=== PATIENT | male | born 1945 | race Caucasian/White ===

== ENCOUNTER 2018-01-30 12:02 | Inpatient (IN) | payer MEDICARE, MEDICAID ==
--- NOTE | 2018-01-30 13:08 | ED Physician Chart ---
ED Chief Complaint/HPI - Patient Information Date Seen:: 01/30/18 Time Seen:: 12:03 Chief Complaint:: GENERALIZED WEAKNESSAND PAIN IN THELEFT HIPAND PELVIC REGION. History of Present Illness:: THE 72-YEAR-OLD MALE HAS BEEN CHRONICALLY IT'LL OVER THE PAST 5 TO 6 YEARS AND HAS BEEN RESIDING IN A LONG-TERM FACILITY. HE WAS REFERRED TO THE EMERGENCY DEPARTMENT BY HIS PRIMARY CARE PHYSICIAN,DR. YUSUF FOR EVALUATION OF SEPSIS AND SEVERE PAIN PAIN IN THE LEFT LOWER EXTREMITY WHICH IS BOTH CHRONIC AND VERY SEVERE. THE PAIN IS MADE WORSE BY ANY MOVEMENT BUT ESPECIALLY WHEN HE IS ROLLED ROLL OVER IN BED BY NURSING PERSONNEL. HE DENIES ANY RECENT FEVER, CHILLS OR DIAPHORESIS.HE THINKS THE SOURCES OF HIS PAIN ARE THE PRESSER ULCERS LOCALIZED TO HIS LOW BACKAND THE RIGHT HEEL AREA. Allergies:: Allergies Allergy/AdvReac Type Severity Reaction Status Date / Time No Known Allergies Allergy Verified 01/30/18 12:21 Vitals:: Vital Signs - 8 hr 01/30/18 12:21 Temp 97.8 F HR 80 RR 18 BP 109/61 O2 Sat % 96 ED Review of Systems - Review of Systems General/Constitutional: No fever, No chills, Weakness, No diaphoresis, No loss of appetite Skin: Skin lesions, Rash Head: No light-headedness Eyes: No loss of vision, No pain, No diplopia ENT: No earache, Sore throat, No sore throat, No tinnitus Pulmonary: No sputum, No wheezing GI: No nausea, No vomiting, No diarrhea, No pain, Constipation, Hematemesis, No hematemesis G/U: No dysuria, No hematuria Hematopoietic: No lymphadenopathy Allergic/Immuno: No urticaria, No angioedema Neurological: No syncope, No focal symptoms, No weakness, No headache, No seizure (WHEN WOULD YOU LIKEFIVE SOUNDS GOOD TO ME), No dizziness, No confusion , No vertigo ED Past Medical History - Past Medical History Past Medical History: HTN, DM, PUD/GERD, Thyroid disorder, Other (OBESITY, MULTIPLECUBITAL OF ULCERSINVOLVING THE BACKAND UNDER THE HEELS,GOUT, ARTHRITIS ( MOST LIKELYTHE SOURCE OF HIS LOWER EXTREMITY PAIN.)) Social History: Smoker (NON-AMBUL), Alcohol, Illicit Drug Use, Single, Care Facility ([facility] DISORDER,) Psychiatricy History: Bipolar (Occational ETOH) Family Medical History - Family Member Mother History Unknown: Yes ED Physical Exam - Physical Examination General/Constitutional: Awake, Alert Other Gen/Cons comments:: Laboratory Tests 01/30/18 01/30/18 01/30/18 13:20 13:50 13:50 Sodium 134 L Potassium 3.5 Chloride 100 Carbon Dioxide 26.3 Anion Gap 11.2 BUN 11 Creatinine 0.5 L Est GFR ( Amer) TNP Est GFR (Non-Af Amer) TNP BUN/Creatinine Ratio 22.0 Glucose 180 H Hemoglobin A1c % 9.2 H Calcium 9.3 Total Bilirubin 0.5 AST 16 ALT 20 Alkaline Phosphatase 107 H Ammonia 29 Total Protein 7.1 Albumin 4.0 L Globulin 3.1 Albumin/Globulin Ratio 1.3 ATRIAL FIBRILLATION Clinical Indications for Admission to Inpatient Care (Ruby/check the applicable condition/criteria) Admission is indicated for 1 or more of the following(1)(2)(3)(4)(5)(6)(7)(8): [ ] I. Hemodynamic instability indicated by 1 or more of the following(1)(2)(3)( 4)(5)(6)(7): [ ] a. Vital sign abnormality not readily corrected by appropriate treatment within 12 to 24 hours indicated by 1 or more of the following: [ ] i. Tachycardia as indicated by 1 or more of the following(1)(2): [ ] 1. Heart rate greater than 100 beats per minute in adult or child age 6 years or older [ ] 2. Heart rate greater than 115 beats per minute in child 3 to 5 years of age [ ] 3. Heart rate greater than 125 beats per minute in child 1 or 2 years of age [ ] 4. Heart rate greater than 130 beats per minute in 6 to 11 months of age [ ] 5. Heart rate greater than 150 beats per minute in infant 3 to 5 months of age [ ] 6. Heart rate greater than 160 beats per minute in infant 1 or 2 months of age [ ] ii. Hypotension as indicated by ALL of the following (1)(2)(3)(4): [ ] A. Not patient baseline (eg, healthy adult with low SBP) or intentional therapeutic goal (eg, low SBP as treatment goal in heart failure) [ ] B. Low blood pressure as indicated by 1 or more of the following: [ ] 1. New onset of SBP less than 90 mm Hg in adult or child 10 years or older [ ] 2. New decrease in SBP greater than 40 mm Hg in adult or child 10 years or older [ ] 3. Mean arterial pressure[A] less than 70 mm Hg in adult or child 10 years or older [ ] 4. New onset of SBP less than sum of 70 mm Hg plus twice patient's age in years in child 1 to 9 years of age [ ] 5. New onset of SBP less than 70 mm Hg in 1 to 11 months of age [ ] iii. Orthostatic vital sign changes as indicated by 1 or more of the following (1): [ ] A. Fall in SBP of 20 mm Hg or more 1 to 3 minutes after patient sits or stands from recumbent position [ ] B. Fall in DBP of 10 mm Hg or more 1 to 3 minutes after patient sits or stands from recumbent position [ ] b. Vital sign abnormality that is severe indicated by 1 or more of the following: [ ] i. Inadequate perfusion as indicated by 1 or more of the following: [ ] A. Lactic acidosis, with lactic acid greater than 18 mg/dL (2 mmol/L) or base excess < -5mEq/L [ ] B. New abnormal capillary refill (longer than 3 seconds) [ ] C .Other metabolic acidosis (arterial pH < 7.35)not otherwise explanied [ ] D. Myocardial ischemia [ ] E. Altered mental status indicated by 1 or more of the following (1)(2)(3)(4): [ ] 1. Confusional state (eg,disorientation, difficultyfollowing commands,deficit in attention) [ ] 2. Lethargy (awake or arousable,but with drowsiness; reduced awareness of self and environment) [ ] 3. Obtundation(ie,arousable with strong stimuli, lessened interestin environment, slowed responses to stimulation) [ ] 4. Stupor (may be arousable but patient does not return to normal baseline level of awareness) [ ] 5. Coma (not arousable) [ ] F. Reduced urine output as indicated by 1 or more of the following(1)(2): [ ] 1. Urine output less than 0.5 mL/kg/hour for 6 hours in adult [ ] 2. Anuria (urine output less than 0.1 mL/kg/hour) for 4 hours in any age group [ ] 3. Reduced output in child as indicated by 1 or more of the following (3): [ ] i. Urine output less than 2 mL/kg/hour for 6 hours in younger than 2 years [ ] ii. Urine output less than 1 mL/kg/hour for 6 hours in child younger than 12 years [ ] iii. Urine output less than 0.75 mL/kg/hour for 6 hours in adolescent younger than 18 years [ ] ii. Mean arterial pressure[A] less than 60 mm Hg [ ] iii. Mean arterial pressure[A] less than 70 mm Hg after 30 minutes of appropriate treatment (eg, fluid resuscitation) [ ] iv. IV inotropic or vasopressor medication required to maintain adequate blood pressure or perfusion [ ] v. Sustained heart rate greater than 120 beats per minute in adult or child 6 years or older[B] [ ] II. Myocardial infarction. [ ] III. Myocardial ischemia that persists despite outpatient and [facility] care treatment [ ] IV. Altered mental status indicated by 1 or more of the following(1)(2)(3)(4 ): [ ] a. Confusional state (eg,disorientation,difficultyfollowing commands, deficit in attention) [ ] b. Lethargy (awake or arousable,but with drowsiness;reduced awareness of self and environment) [ ] c. Obtundation(ie,arousable with strong stimuli,lessened interestin environment, slowed responses to stimulation) [ ] d. Stupor (may be arousable but patient does not return to normal baseline level of awareness) [ ] e. Coma (not arousable) [ ] V. Syncope [ ] . Heart failure (eg, pulmonary edema with dyspnea, Tachypnea, or Hypoxemia )(10) [ ] a. Tachypnea as indicated by respiratory rate of 1 or more of the following(1)(2): [ ] i. Greater than 18 breaths per minute in adult or child age 12 years or older [ ] ii. Greater than 22 breaths per minute in child 6 to 11 years of age [ ] iii. Greater than 25 breaths per minute in child 3 to 5 years of age [ ] iv. Greater than 30 breaths per minute in child 1 or 2 years of age [ ] v. Greater than 40 breaths per minute in infant 6 to 11 months of age [ ] vi. Greater than 45 breaths per minute in 3 to 5 months of age [ ] vii. Greater than 60 breaths per minute in infant 1 or 2 months of age [ ] b. Hypoxemia as indicated by 1 or more of the following (1): [ ] i. Previously normal respiratory status with 1 or more of the following [ ] A. Arterial oxygen saturation (SaO2) less than 90% o arterial partial pressure of oxygen (PO2) less than 60 mm Hg (8.0 kPa) on room air[A] [ ] B. Oxygen required to keep SaO2 greater than 90% or PO2 greater than 60 mm Hg(8.0kPa) [ ] ii. Chronic lung disease with 1 or more of the following (2): [ ] A. New requirement for supplemental oxygen to keep SaO2 at baseline or acceptable level [ ] B. Required supplemental oxygen performable only in acute inpatient setting [ ] VII. Patient has implantable cardioverter-defibrillator that has fired more than once within past 24 hours or needs immediate adjustment of settings that cannot be done other than in inpatient setting. [ ] VIII. Suspected accessory pathway (eg, Qyxrp-Uwolksfwl-Thcqq syndrome) on ECG [ ] IX. Medication toxicity (eg, digitalis) causing arrhythmia (12) [ ] X. Underlying medical condition that necessitates inpatient care (eg, thyrotoxicosis, pneumonia) (13) [ ] XI. Continuous ECG monitoring is required for condition causing arrhythmia ( eg, severe hyperkalemia, hypokalemia, acid-base disturbance).(14)(15)(16) [ ] XII. Initiation of antiarrhythmic drug therapy for patient at high risk of adverse effects as indicated by 1 or more of the following: [ ] a. Significant structural heart disease [ ] b. Underlyingsinus node or atrioventricular conduction disturbances [ ] c. Prolonged QT interval [ ] d. Need for treatment with antiarrhythmic drugs that have significant proarrhythmic potential (eg, dofetilide, sotalol, procainamide) [ ] e. Patient whose sinus rhythm has never been observed on ECG [ ] XIII. Persistent symptomatic Tachycardia (eg, chest pain, evidence of myocardial ischemia) despite outpatient and observation level of care (eg, rate cannot be sufficiently controlled) [ ] a. Tachycardia as indicated by 1 or more of the following(1)(2): [ ] i. Heart rate greater than 100 beats per minute in adult or child age 6 years or older [ ] ii. Heart rate greater than 115 beats per minute in child 3 to 5 years of age [ ] iii. Heart rate greater than 125 beats per minute in child 1 or 2 years of age [ ] iv. Heart rate greater than 130 beats per minute in infant 6 to 11 months of age [ ] v. Heart rate greater than 150 beats per minute in infant 3 to 5 months of age [ ] vi. Heart rate greater than 160 beats per minute in 1 or 2 months of age [ ] XIV. Elective or urgent electrical cardioversion that cannot be performed on outpatient basis or during observation care Extended stay beyond goal length of stay may be needed for (1)(43)(44): [ ] I. Unstable comorbidities (eg, heart failure, COPD, renal insufficiency ) [ ] a. Unstable comorbidities may be exacerbated by atrial fibrillation with rapid ventricular response. [ ] b. Anticipate treatment of specific comorbidity. [ ] II. Persistently uncontrolled atrial fibrillation (eg, continued rapid ventricular response) (45) [ ] a. Anticipate appropriate medication changes, possible catheter ablation , or possible need for continued monitoring. [E] [ ] III. Acute thromboembolic event (eg, stroke, limb or intestinal ischemia) [ ] a. Thromboembolism may occur during episodes of atrial fibrillation or soon after conversion to sinus rhythm. Anticipate diagnostic imaging studies and anticoagulation. [ ] b. Anticipate possible surgery or vascular procedure in cases of critical limb ischemia. [ ] IV. Need for inpatient attainment of full anticoagulation(28)(46)(47) [ ] a. Most patients can be started on anticoagulation in hospital and achieve full anticoagulation as outpatient over ensuing few days, or are treated with oral anticoagulants with rapid onset of action (hours) (eg, dabigatran, rivaroxaban). [ ] b. In unusual circumstances (eg, mechanical prosthetic heart valve), patients with atrial fibrillation require full anticoagulation with warfarin before discharge The original [employer] content created by [employer] has been revised. The portions of the content which have been revised are identified through the use of italic text, and [email or web address] has neither reviewed nor approved the modified material. All other unmodified content is copyright [employer]. Please see references footnoted in the original [employer] edition 2017 Laboratory Results WBC 8.0 Th/cmm (4.8-10.8) 01/31/18 05:00 RBC 4.79 Mil/cmm (3.80-5.80) 01/31/18 05:00 Hgb 12.5 gm/dL (12-16) 01/31/18 05:00 Hct 37.6 % (41.0-60) L 01/31/18 05:00 MCV 78.5 fl (80-99) L 01/31/18 05:00 MCH 26.0 pg (27.0-31.0) L 01/31/18 05:00 MCHC Differential 33.2 pg (28.0-36.0) 01/31/18 05:00 RDW 15.2 % (11.5-20.0) 01/31/18 05:00 Plt Count 294 Th/cmm (150-400) 01/31/18 05:00 MPV 6.4 fl 01/31/18 05:00 Neutrophils % 66.6 % (40.0-80.0) 01/31/18 05:00 Lymphocytes % 22.4 % (20.0-50.0) 01/31/18 05:00 Monocytes % 9.4 % (2.0-10.0) 01/31/18 05:00 Eosinophils % 0.9 % (0.0-5.0) 01/31/18 05:00 Basophils % 0.7 % (0.0-2.0) 01/31/18 05:00 Sodium 137 mEq/L (136-145) 01/31/18 05:00 Potassium 3.6 mEq/L (3.5-5.1) 01/31/18 05:00 Chloride 102 mEq/L (98-107) 01/31/18 05:00 Carbon Dioxide 25.7 mEq/L (21.0-31.0) 01/31/18 05:00 Anion Gap 12.9 (7.0-16.0) 01/31/18 05:00 BUN 12 mg/dL (7-25) 01/31/18 05:00 Creatinine 0.5 mg/dL (0.7-1.3) L 01/31/18 05:00 Est GFR ( Amer) TNP 01/31/18 05:00 Est GFR (Non-Af Amer) TNP 01/31/18 05:00 BUN/Creatinine Ratio 24.0 01/31/18 05:00 Glucose 187 mg/dL (70-105) H 01/31/18 05:00 POC Glucose 145 MG/DL (70 - 105) H 01/31/18 17:03 Hemoglobin A1c % 9.2 % (4.0-6.0) H 01/30/18 13:50 Calcium 9.6 mg/dL (8.6-10.3) 01/31/18 05:00 Total Bilirubin 0.5 mg/dL (0.3-1.0) 01/30/18 13:20 AST 16 U/L (13-39) 01/30/18 13:20 ALT 20 U/L (7-52) 01/30/18 13:20 Alkaline Phosphatase 107 U/L (34-104) H 01/30/18 13:20 Ammonia 29 umol/L (16-53) 01/30/18 13:50 Total Protein 7.1 gm/dL (6.0-8.3) 01/30/18 13:20 Albumin 4.0 gm/dL (4.2-5.5) L 01/30/18 13:20 Globulin 3.1 gm/dL 01/30/18 13:20 Albumin/Globulin Ratio 1.3 (1.0-1.8) 01/30/18 13:20 Urine Source CLEAN C 01/30/18 18:45 Urine Color YELLOW 01/30/18 18:45 Urine Clarity CLEAR (CLEAR) 01/30/18 18:45 Urine pH 5.5 (4.6 - 8.0) 01/30/18 18:45 Ur Specific [place] 1.025 (1.005-1.030) 01/30/18 18:45 Urine Protein NEGATIVE mg/dL (NEGATIVE) 01/30/18 18:45 Urine Glucose (UA) NEGATIVE mg/dL (NEGATIVE) 01/30/18 18:45 Urine Ketones NEGATIVE mg/dL (NEGATIVE) 01/30/18 18:45 Urine Blood NEGATIVE (NEGATIVE) 01/30/18 18:45 Urine Nitrate NEGATIVE (NEGATIVE) 01/30/18 18:45 Urine Bilirubin NEGATIVE (NEGATIVE) 01/30/18 18:45 Urine Urobilinogen 0.2 E.U./dL (0.2 - 1.0) 01/30/18 18:45 Ur Leukocyte Esterase NEGATIVE (NEGATIVE) 01/30/18 18:45 Urine RBC 0-2 /hpf (0-5) H 01/30/18 18:45 Urine WBC 0-2 /hpf (0-5) 01/30/18 18:45 Ur Epithelial Cells OCCASIONAL /lpf (FEW) 01/30/18 18:45 Urine Bacteria OCCASIONAL /hpf (NONE SEEN) 01/30/18 18:45 CBC:THE WHITE COUNT WAS 8000IN THE HEMOGLOBIN LEVEL12.5. ELECTROLYTES SHOWED A MILD HYPONATREMIAOF 137.THE OTHER ELECTROLYTES WERE WITHIN NORMAL PARAMETERS.ARIANE LIVER FUNCTION TESTS WERE NORMAL.SCRATCH THAT Eyes: PERRL, EOMI ED Labs/Radiology/EKG Results - Lab Results Results: Laboratory Tests 01/30/18 01/30/18 13:20 13:50 Sodium 134 L Potassium 3.5 Chloride 100 Carbon Dioxide 26.3 Anion Gap 11.2 BUN 11 Creatinine 0.5 L Est GFR ( Amer) TNP Est GFR (Non-Af Amer) TNP BUN/Creatinine Ratio 22.0 Glucose 180 H Calcium 9.3 Total Bilirubin 0.5 AST 16 ALT 20 Alkaline Phosphatase 107 H Ammonia 29 Total Protein 7.1 Albumin 4.0 L Globulin 3.1 Albumin/Globulin Ratio 1.3 Laboratory Results - last 24 hr 01/30/18 13:50 Hemoglobin A1c % 9.2 H CBC IS UN REMARKABLEWITH THE WHITE CANOPY THOUSANDIN A NORMAL HEMOGLOBIN.THERE IS MILD HYPONATREMIAWITH THE SODIUM OF 134.THE REST OF THE ELECTROLYTESARE WITHIN THE NORMAL RANGE. THE SERUM GLUCOSEIS CONSISTENTLY ELEVATED BUT UNDER 200. IS CONSISTENTLY ELEVATED IN THE 180 RANGE. LFTS WERE NORMAL EXCEPT FOR THE ALK-PTASESSSSSSSS 107WHICH IS PROBABLY NOT CLINICALLY SIGNIFICANT IN VIEW OF THE OTHER IT LIVER ENZYMESIN THE NORMAL RANGE.NO EVIDENCE FOR UTI. ED Assessment - Assessment General Assessment: CASE SUMMARY:THIS UNFORTUNATE 72-YEAR-OLD MALEHAS BEENWHEELCHAIR BOUNDFOR THE LAST SIX YEARS.HE WAS REFERRED TO THEHOSPITAL TODAYBY HIS PRIMARY CARE PHYSICIANFOR EVALUATIONOF GENERALIZED WEAKNESSAND POSSIBLE SEPSIS.THE PATIENT DENIED ANY FEVER, CHILLSOR SWEATS.LABORATORY STUDIESSHOWING NORMAL WHITE COUNT, RENAL FUNCTION STUDIES,NORMAL LIVER FUNCTION STUDIES.HE WAS SETTING IT95% ON ROOM HIS HEART RATE WAS AT THE UPPER LIMIT OF NORMAL.PATIENTHAD NO EVIDENCE OF SEPTIC SHOCKTHIS IS WHAT PRESSUREWAS IN THE NORMAL RANGE.ON PHYSICAL EXAMINATION THE PATIENT HAD MULTIPLEULCERATIVE LESIONSOVER THE LOBACKAN ENTITYCOCCYX REGION.MOST OF THESE WERE STILLCOVERED BY A EPIDERMIS..THE SKIN IN THE LOWER EXTREMITIESBELOW THE KNEESWAS HYPERPIGMENTED AND APPEARED TO BE THIN.THIS IS CONSISTENT WITH STASIS DERMATITIS.THE CASE WAS DISCUSSED WITH DR. BAE THE PATIENT WILL BE ADMITTEDFOR FURTHER ATTENTION TO THE MULTIPLE PRESSURE CONSIDERATIONSAND PAIN IN THE LOWER EXTREMITIES. ED Septic Shock - . Is Septic Shock (SBP<90, OR Lactate>4 mmol\L) present?: No - <6hrs of presentation: Vital Signs: Vital Signs - 8 hr 01/30/18 12:21 Temp 97.8 F HR 80 RR 18 BP 109/61 O2 Sat % 96 ED Reassessment (Disposition) - Reassessment Reassessment Condition:: Unchanged - Diagnosis Diagnosis:: OBESITY, SLEEP APNEA,HYPERTENSION,MULTIPLE DECUBITUS ULCERS POSSIBLE SEPSIS ED Discharge Plan - Patient Disposition Admit/Discharge/Transfer: Acute Care w/in this hosp Condition at Disposition: Stable
[2018-01-30 14:16] LABS: ALB/GLOB RATIO 1.3 (1.0-1.8); ALKALINE PHOSPHATASE 107 U/L (34-104); ANION GAP 11.2 (7.0-16.0); BILIRUBIN,TOTAL 0.5 mg/dL (0.3-1.0); BUN - UREA NITROGEN 11 mg/dL (7-25); CALCIUM SERUM 9.3 mg/dL (8.6-10.3); CARBON DIOXIDE 26.3 mEq/L (21.0-31.0); CHLORIDE 100 mEq/L (98-107); CREATININE - SERUM 0.5 mg/dL (0.7-1.3); GLUCOSE 180 mg/dL (70-105); POTASSIUM SERUM 3.5 mEq/L (3.5-5.1); SGOT 16 U/L (13-39); SGPT/ALT 20 U/L (7-52); SODIUM SERUM 134 mEq/L (136-145); TOTAL PROTEIN,SERUM 7.1 gm/dL (6.0-8.3)
[2018-01-30 17:52] LABS: A1C % 9.2 % (4.0-6.0)
[2018-01-30] MEDS ORDERED: Morphine Sulfate 4 mg/mL 1mL Syr IVP PRN ×2 (20:02→20:03)
[2018-01-30] MEDS ORDERED: INSULIN REGULAR HUMAN 1 UNIT SQ SCH (20:30)
[2018-01-30] MEDS: INSULIN ASPART SLIDING SCALE 100 UNITS/ML UNIT SUBQ SCH (20:36)
[2018-01-30] MEDS: Atorvastatin Calcium 10 MG TAB PO SCH (21:02)
--- NOTE | 2018-01-30 21:18 | History & Physical ---
ADMIT DATE: 01/30/2018 The patient is very well known to me. The patient is from the [place]. This patient is very, very obese, history of hypertension, history of diabetes, history of severe obesity, history of hyperlipidemia, history of gout, history of bedbound status, patient was transferred to [facility] from where he was admitted for multiple decubiti and infection and sepsis and history of obstructive sleep apnea. The patient again as noted earlier, history of hypertension, diabetes, gout, hyperlipidemia and the patient is hardly able to move, complains of multiple decubiti. LABORATORY DATA: White count was elevated and his sodium was low at 134 and glucose is high and his hemoglobin A1c 9.2, alkaline phosphatase was slightly elevated. Albumin was low and the patient was admitted for the decubiti and wound care. The patient's all history obtained through the old chart as well as talking to the ER doctor. PHYSICAL EXAMINATION: GENERAL: The patient is very obese, noncompliant with medications. HEAD: Normal. ENT: Normal. LUNGS: Bilateral decreased. CARDIOVASCULAR SYSTEM: S1, S2 heard. ABDOMEN: Soft. Bowel sounds are heard. CENTRAL NERVOUS SYSTEM: Normal. The patient has shortness of breath and also multiple decubiti and as noted, sodium is 134 and his BUN and creatinine was low, hemoglobin was 9.2. DIAGNOSES: 1. Multiple decubiti infection. 2. Bedbound status. 3. Severe obesity, obstructive lung disease, history of hyperlipidemia, history of prostate enlargement, history of GERD, history of bipolar disorder and history of peripheral vascular disease and history of insulin-dependent resistant diabetes, history of hypertension and bedbound status. PLAN: The patient is being admitted. We will give him IV antibiotics and wound care and I will call Dr. Bret Carrington to see the patient as well as Dr. Cunningham and I will follow the patient. JOB# [id number]
[2018-01-30 22:24] LABS: URINE MICROSCOPIC INDICATED? YES; URINE SOURCE CLEAN C
[2018-01-30 22:26] LABS: URINE BILIRUBIN NEGATIVE (NEGATIVE); URINE BLOOD NEGATIVE (NEGATIVE); URINE GLUCOSE (UA) NEGATIVE (NEGATIVE); URINE KETONE NEGATIVE (NEGATIVE); URINE LEUKOCYTE ESTERASE NEGATIVE (NEGATIVE); URINE NITRATE NEGATIVE (NEGATIVE); URINE PH 5.5 (4.6 - 8.0); URINE PROTEIN NEGATIVE (NEGATIVE); URINE UROBILINOGEN 0.2 E.U./dL (0.2 - 1.0)
[2018-01-30 22:43] LABS: URINE CLARITY CLEAR (CLEAR); URINE COLOR YELLOW
[2018-01-30 22:45] LABS: URINE BACTERIA OCCASIONAL /hpf (NONE SEEN); URINE EPITHELIAL CELLS OCCASIONAL /lpf (FEW); URINE RBC 0-2 /hpf (0-5); URINE WBC 0-2 /hpf (0-5)
[2018-01-31 05:32] LABS: % BASOPHILS 0.7 % (0.0-2.0); % EOSINOPHILS 0.9 % (0.0-5.0); % LYMPHOCYTES 22.4 % (20.0-50.0); % MONOCYTES 9.4 % (2.0-10.0); % NEUTROPHILS 66.6 % (40.0-80.0); BASOPHILE ABSOLUTE 0.1 Th/cumm (0-0.2); EOSINOPHILE ABSOLUTE 0.1 Th/cmm (0.1-0.4); HEMATOCRIT 37.6 % (41.0-60); HEMOGLOBIN 12.5 gm/dL (12-16); LYMPHOCYTE ABSOLUTE 1.8 Th/cmm (1.5-3.0); MEAN CELL VOLUME 78.5 fl (80-99); MEAN CORPUSCULAR HGB CONC 33.2 pg (28.0-36.0); MEAN PLATELET VOLUME 6.4 fl; MONOCYTE ABSOLUTE 0.8 Th/cmm (0.3-1.0); NEUTROPHILE ABSOLUTE 5.2 Th/cmm (1.8-8.0); PLATELET COUNT 294 Th/cmm (150-400); RED BLOOD COUNT 4.79 Mil/cmm (3.80-5.80); RED CELL DISTRIBUTION WIDTH 15.2 % (11.5-20.0)
[2018-01-31 05:53] LABS: ANION GAP 12.9 (7.0-16.0); BUN - UREA NITROGEN 12 mg/dL (7-25); CALCIUM SERUM 9.6 mg/dL (8.6-10.3); CARBON DIOXIDE 25.7 mEq/L (21.0-31.0); CHLORIDE 102 mEq/L (98-107); CREATININE - SERUM 0.5 mg/dL (0.7-1.3); GLUCOSE 187 mg/dL (70-105); POTASSIUM SERUM 3.6 mEq/L (3.5-5.1); SODIUM SERUM 137 mEq/L (136-145)
[2018-01-31] MEDS: INSULIN ASPART SLIDING SCALE 100 UNITS/ML UNIT SUBQ SCH ×4 (06:40→20:41)
[2018-01-31] MEDS: Fenofibrate, Micronized 134 mg Cap PO SCH (10:08)
[2018-01-31] MEDS: Hydrocodone/APAP 5mg/325mg Tab PO SCH ×2 (10:09→16:52)
[2018-01-31] MEDS: Multivitamin w/ Minerals Tab PO SCH (10:11)
--- NOTE | 2018-01-31 13:42 | General Progress Note ---
Subjective - Review of Systems Service Date: 01/31/18 Events since last encounter: consult dictated doppler arterial and venous studies ordered local wound care Objective - Results Result Diagrams: 01/31/18 05:00 01/31/18 05:00 Recent Labs: Laboratory Last Values WBC 8.0 Th/cmm (4.8-10.8) 01/31/18 05:00 RBC 4.79 Mil/cmm (3.80-5.80) 01/31/18 05:00 Hgb 12.5 gm/dL (12-16) 01/31/18 05:00 Hct 37.6 % (41.0-60) L 01/31/18 05:00 MCV 78.5 fl (80-99) L 01/31/18 05:00 MCH 26.0 pg (27.0-31.0) L 01/31/18 05:00 MCHC Differential 33.2 pg (28.0-36.0) 01/31/18 05:00 RDW 15.2 % (11.5-20.0) 01/31/18 05:00 Plt Count 294 Th/cmm (150-400) 01/31/18 05:00 MPV 6.4 fl 01/31/18 05:00 Neutrophils % 66.6 % (40.0-80.0) 01/31/18 05:00 Lymphocytes % 22.4 % (20.0-50.0) 01/31/18 05:00 Monocytes % 9.4 % (2.0-10.0) 01/31/18 05:00 Eosinophils % 0.9 % (0.0-5.0) 01/31/18 05:00 Basophils % 0.7 % (0.0-2.0) 01/31/18 05:00 Sodium 137 mEq/L (136-145) 01/31/18 05:00 Potassium 3.6 mEq/L (3.5-5.1) 01/31/18 05:00 Chloride 102 mEq/L (98-107) 01/31/18 05:00 Carbon Dioxide 25.7 mEq/L (21.0-31.0) 01/31/18 05:00 Anion Gap 12.9 (7.0-16.0) 01/31/18 05:00 BUN 12 mg/dL (7-25) 01/31/18 05:00 Creatinine 0.5 mg/dL (0.7-1.3) L 01/31/18 05:00 Est GFR ( Amer) TNP 01/31/18 05:00 Est GFR (Non-Af Amer) TNP 01/31/18 05:00 BUN/Creatinine Ratio 24.0 01/31/18 05:00 Glucose 187 mg/dL (70-105) H 01/31/18 05:00 Hemoglobin A1c % 9.2 % (4.0-6.0) H 01/30/18 13:50 Calcium 9.6 mg/dL (8.6-10.3) 01/31/18 05:00 Total Bilirubin 0.5 mg/dL (0.3-1.0) 01/30/18 13:20 AST 16 U/L (13-39) 01/30/18 13:20 ALT 20 U/L (7-52) 01/30/18 13:20 Alkaline Phosphatase 107 U/L (34-104) H 01/30/18 13:20 Ammonia 29 umol/L (16-53) 01/30/18 13:50 Total Protein 7.1 gm/dL (6.0-8.3) 01/30/18 13:20 Albumin 4.0 gm/dL (4.2-5.5) L 01/30/18 13:20 Globulin 3.1 gm/dL 01/30/18 13:20 Albumin/Globulin Ratio 1.3 (1.0-1.8) 01/30/18 13:20 Urine Source CLEAN C 01/30/18 18:45 Urine Color YELLOW 01/30/18 18:45 Urine Clarity CLEAR (CLEAR) 01/30/18 18:45 Urine pH 5.5 (4.6 - 8.0) 01/30/18 18:45 Ur Specific [place] 1.025 (1.005-1.030) 01/30/18 18:45 Urine Protein NEGATIVE mg/dL (NEGATIVE) 01/30/18 18:45 Urine Glucose (UA) NEGATIVE mg/dL (NEGATIVE) 01/30/18 18:45 Urine Ketones NEGATIVE mg/dL (NEGATIVE) 01/30/18 18:45 Urine Blood NEGATIVE (NEGATIVE) 01/30/18 18:45 Urine Nitrate NEGATIVE (NEGATIVE) 01/30/18 18:45 Urine Bilirubin NEGATIVE (NEGATIVE) 01/30/18 18:45 Urine Urobilinogen 0.2 E.U./dL (0.2 - 1.0) 01/30/18 18:45 Ur Leukocyte Esterase NEGATIVE (NEGATIVE) 01/30/18 18:45 Urine RBC 0-2 /hpf (0-5) H 01/30/18 18:45 Urine WBC 0-2 /hpf (0-5) 01/30/18 18:45 Ur Epithelial Cells OCCASIONAL /lpf (FEW) 01/30/18 18:45 Urine Bacteria OCCASIONAL /hpf (NONE SEEN) 01/30/18 18:45 - Physical Exam Vitals and I&O: Vital Signs Temp 97.3 F 01/31/18 11:55 Pulse 87 01/31/18 11:55 Resp 18 01/31/18 11:55 BP 105/67 01/31/18 11:55 Pulse Ox 93 01/31/18 11:55 Intake & Output 01/30/18 01/31/18 01/31/18 18:59 06:59 18:59 Intake Total 750 Balance 750 Weight (lbs) 107.955 kg 112.491 kg Intake: Oral 750 Other: Weight Source Estimated Bedscale Active Medications: Current Medications Acetaminophen/Hydrocodone Bitart ([place] 5mg/325mg) 1 tab PO BID [facility] Stop: 04/01/18 08:59 Last Admin: 01/31/18 10:09 Dose: 1 tab Alendronate Sodium (Fosamax) 70 mg PO Th@0730 [facility] Stop: 04/03/18 07:29 Allopurinol (Zyloprim) 300 mg PO DAILY [facility] Stop: 04/01/18 08:59 Last Admin: 01/31/18 10:07 Dose: 300 mg Aripiprazole (Abilify) 5 mg PO DAILY [facility]; Protocol Stop: 04/01/18 08:59 Last Admin: 01/31/18 10:08 Dose: 5 mg Atorvastatin Calcium (Lipitor) 20 mg PO HS [facility] Stop: 03/31/18 20:59 Last Admin: 01/30/18 21:02 Dose: 20 mg Baclofen (Lioresal) 10 mg PO QPM [facility] Stop: 04/01/18 16:59 Baclofen (Lioresal) 20 mg PO DAILY [facility] Stop: 04/01/18 08:59 Last Admin: 01/31/18 10:11 Dose: 20 mg Cholecalciferol (Vitamin D3) 5,000 iu PO DAILY [facility] Stop: 04/01/18 08:59 Last Admin: 01/31/18 10:07 Dose: 5,000 iu Docusate Sodium (Colace) 250 mg PO BID [facility] Stop: 04/01/18 08:59 Last Admin: 01/31/18 10:09 Dose: 250 mg Fenofibrate (Tricor) 134 mg PO DAILY [facility] Stop: 04/01/18 08:59 Last Admin: 01/31/18 10:08 Dose: 134 mg Furosemide (Lasix) 20 mg PO DAILY [facility] Stop: 04/01/18 08:59 Last Admin: 01/31/18 10:09 Dose: 20 mg Gabapentin (Neurontin) 300 mg PO BID [facility] Stop: 04/01/18 08:59 Last Admin: 01/31/18 10:10 Dose: 300 mg Insulin Aspart (Novolog Insulin Sliding Scale) 0 units SUBQ ACHS [facility]; Protocol Stop: 03/31/18 20:59 Last Admin: 01/31/18 12:17 Dose: 6 units Lamotrigine (Lamictal) 75 mg PO BID [facility] Stop: 04/01/18 08:59 Last Admin: 01/31/18 10:10 Dose: 75 mg Metformin HCl (Glucophage) 500 mg PO BIDWM [facility] Stop: 04/01/18 07:59 Last Admin: 01/31/18 10:11 Dose: 500 mg Morphine Sulfate (Morphine) 1 mg IVP Q3H PRN PRN Reason: Pain (Moderate) Stop: 03/31/18 20:01 Last Admin: 01/30/18 20:57 Dose: 1 mg Morphine Sulfate (Morphine) 2 mg IVP Q3H PRN PRN Reason: Pain (Severe) Stop: 03/31/18 20:02 Tamsulosin HCl (Flomax) 0.4 mg PO DAILY [facility] Stop: 04/01/18 08:59 Last Admin: 01/31/18 10:09 Dose: 0.4 mg
--- NOTE | 2018-01-31 14:39 | Consultation ---
Consult Note - Consult Note Service Date: 01/31/18 Referring Physician: Uche Atkins Consult Note: PHYSICIAN Consultation Note: Date of Admission: 01/30/18 Purpose of Consultation: Chief Complaint: Patient ZOEY DICKERSON was admitted to location Medical/ Surgical Unit I with MULTIPLE DECUBITUS ULCERS, GENERAL WEAKNESS. History of Present Illness: 72 year male with a past medical history of forearm hypertension, diabetes mellitus type 2, obesity, sleep apnea, hyperlipidemia, gout, history of bone but status brought to the ER for right heel and lower back decubiti and assisted to the sepsis. On initial evaluation patient's temperature was 97.8F and WBC count was 8000. Past Medical History: hypertension, diabetes mellitus type 2, obesity, sleep apnea, hyperlipidemia, gout, history of bone but status brought to the ER for right heel and low Allergies Allergy/AdvReac Type Severity Reaction Status Date / Time No Known Allergies Allergy Verified 01/30/18 12:21 Vital Signs Temp 97.3 F 01/31/18 11:55 Pulse 87 01/31/18 11:55 Resp 18 01/31/18 11:55 BP 105/67 01/31/18 11:55 Pulse Ox 93 01/31/18 11:55 Intake & Output 01/30/18 01/31/18 01/31/18 18:59 06:59 18:59 Intake Total 750 Balance 750 Weight (lbs) 107.955 kg 112.491 kg Intake: Oral 750 Other: Weight Source Estimated Bedscale Laboratory Results - last 24 hr 01/30/18 01/30/18 01/31/18 13:50 18:45 05:00 WBC 8.0 RBC 4.79 Hgb 12.5 Hct 37.6 L MCV 78.5 L MCH 26.0 L MCHC Differential 33.2 RDW 15.2 Plt Count 294 MPV 6.4 Neutrophils % 66.6 Lymphocytes % 22.4 Monocytes % 9.4 Eosinophils % 0.9 Basophils % 0.7 Sodium Potassium Chloride Carbon Dioxide Anion Gap BUN Creatinine Est GFR ( Amer) Est GFR (Non-Af Amer) BUN/Creatinine Ratio Glucose Hemoglobin A1c % 9.2 H Calcium Urine Source CLEAN C Urine Color YELLOW Urine Clarity CLEAR Urine pH 5.5 Ur Specific [place] 1.025 Urine Protein NEGATIVE Urine Glucose (UA) NEGATIVE Urine Ketones NEGATIVE Urine Blood NEGATIVE Urine Nitrate NEGATIVE Urine Bilirubin NEGATIVE Urine Urobilinogen 0.2 Ur Leukocyte Esterase NEGATIVE Urine RBC 0-2 H Urine WBC 0-2 Ur Epithelial Cells OCCASIONAL Urine Bacteria OCCASIONAL 01/31/18 05:00 WBC RBC Hgb Hct MCV MCH MCHC Differential RDW Plt Count MPV Neutrophils % Lymphocytes % Monocytes % Eosinophils % Basophils % Sodium 137 Potassium 3.6 Chloride 102 Carbon Dioxide 25.7 Anion Gap 12.9 BUN 12 Creatinine 0.5 L Est GFR ( Amer) TNP Est GFR (Non-Af Amer) TNP BUN/Creatinine Ratio 24.0 Glucose 187 H Hemoglobin A1c % Calcium 9.6 Urine Source Urine Color Urine Clarity Urine pH Ur Specific [place] Urine Protein Urine Glucose (UA) Urine Ketones Urine Blood Urine Nitrate Urine Bilirubin Urine Urobilinogen Ur Leukocyte Esterase Urine RBC Urine WBC Ur Epithelial Cells Urine Bacteria Home Medication Medication Instructions Recorded Type Alendronate Sodium [Fosamax] 70 mg PO Q7D 01/30/18 History Allopurinol 300 mg PO DAILY 01/30/18 History Aripiprazole [Abilify] 1 tab PO DAILY 01/30/18 History Atorvastatin Calcium [Lipitor] 20 mg PO HS 01/30/18 History Baclofen [Baclofen*] 20 mg PO DAILY 01/30/18 History Baclofen [Lioresal*] 1 tab PO QPM 01/30/18 History Cholecalciferol (Vitamin D3) 1 cap PO DAILY 01/30/18 History [Vitamin D3] Docusate Sodium [Colace] 250 mg PO BID 01/30/18 History Fenofibrate,Micronized 1 cap PO DAILY 01/30/18 History [Fenofibrate] Furosemide [Lasix] 20 mg PO DAILY 01/30/18 History Gabapentin [Neurontin] 300 mg PO BID 01/30/18 History Hydrocodone/APAP 5mg/325mg [[place] 1 tab PO BID MDD 4 DOSES/24 HOURS 01/30/18 History 5mg/325mg] Insulin Regular, Human [Afrezza] 1 unit SQ 2XW 01/30/18 History Lamotrigine [Lamictal] 75 mg PO BID 01/30/18 History Multivitamin with Minerals 1 tab PO DAILY 01/30/18 History [Multiple Vitamin] Tamsulosin [Flomax] 1 cap PO DAILY 01/30/18 History metFORMIN [Glucophage] 500 mg PO BID 01/30/18 History Current Medications Generic Name Dose Route Start Last Admin Trade Name López PRN Reason Stop Dose Admin Acetaminophen/Hydrocodone Bitart 1 tab 01/31/18 09:00 01/31/18 10:09 [place] 5mg/325mg PO 04/01/18 08:59 1 tab BID [facility] Administration Alendronate Sodium 70 mg 02/02/18 07:30 Fosamax PO 04/03/18 07:29 Th@0730 [facility] Allopurinol 300 mg 01/31/18 09:00 01/31/18 10:07 Zyloprim PO 04/01/18 08:59 300 mg DAILY [facility] Administration Aripiprazole 5 mg 01/31/18 09:00 01/31/18 10:08 Abilify PO 04/01/18 08:59 5 mg DAILY [facility] Administration Protocol Atorvastatin Calcium 20 mg 01/30/18 21:00 01/30/18 21:02 Lipitor PO 03/31/18 20:59 20 mg HS [facility] Administration Baclofen 10 mg 01/31/18 17:00 Lioresal PO 04/01/18 16:59 QPM [facility] Baclofen 20 mg 01/31/18 09:00 01/31/18 10:11 Lioresal PO 04/01/18 08:59 20 mg DAILY [facility] Administration Cholecalciferol 5,000 iu 01/31/18 09:00 01/31/18 10:07 Vitamin D3 PO 04/01/18 08:59 5,000 iu DAILY [facility] Administration Docusate Sodium 250 mg 01/31/18 09:00 01/31/18 10:09 Colace PO 04/01/18 08:59 250 mg BID [facility] Administration Fenofibrate 134 mg 01/31/18 09:00 01/31/18 10:08 Tricor PO 04/01/18 08:59 134 mg DAILY [facility] Administration Furosemide 20 mg 01/31/18 09:00 01/31/18 10:09 Lasix PO 04/01/18 08:59 20 mg DAILY [facility] Administration Gabapentin 300 mg 01/31/18 09:00 01/31/18 10:10 Neurontin PO 04/01/18 08:59 300 mg BID [facility] Administration Insulin Aspart 0 units 01/30/18 21:00 01/31/18 12:17 Novolog Insulin Sliding Scale SUBQ 03/31/18 20:59 6 units ACHS [facility] Administration Protocol Lamotrigine 75 mg 01/31/18 09:00 01/31/18 10:10 Lamictal PO 04/01/18 08:59 75 mg BID [facility] Administration Metformin HCl 500 mg 01/31/18 08:00 01/31/18 10:11 Glucophage PO 04/01/18 07:59 500 mg BIDWM [facility] Administration Morphine Sulfate 1 mg 01/30/18 20:02 01/30/18 20:57 Morphine IVP 03/31/18 20:01 1 mg Q3H PRN Administration Pain (Moderate) Morphine Sulfate 2 mg 01/30/18 20:03 Morphine IVP 03/31/18 20:02 Q3H PRN Pain (Severe) Tamsulosin HCl 0.4 mg 01/31/18 09:00 01/31/18 10:09 Flomax PO 04/01/18 08:59 0.4 mg DAILY [facility] Administration Review of Systems: A 12 point ROS was reviewed with the pertinent positive and negatives noted in the HPI. Social History Smoking Status Former smoker Family Medical History Unknown. Physical Exam: General: Comfortable not in acute distress. HEENT: Head is also, atraumatic. Oral cavity moist, pink tongue. Eyes: Pallor is present. No icterus. Neck: Supple, no JVD. Cardio: S1 And S2 within normal limits. Respiratory: Vesicular with some fever no crackles no wheezing. Abdominal: Soft, nontender nondistended bowel sound present. Genital/Urinary: Deferred. Extremities: N CCE . Neurological: Alert and awake. Skin: Bilateral low back ulcers stage II no erythema no discharge. Right heel ulcer no erythema no distress. Assessment: 1. Bilateral low back ulcer. 2. Right heel ulcer. 3. Diabetes mellitus type 2. 4. Hypertension. 5. Obesity. 6. Sleep apnea. 7. Left lower extremity swelling. Lymphedema. Rule out DVT. Plan: Wound care. Venous ultrasound to rule out DVT. Arterial study of both lower activity Thank you, Dr. Atkins for involving me in taking care of this patient. Signed, Bret Carrington M.D. [id number]
--- NOTE | 2018-01-31 15:47 | Consultation ---
DATE OF CONSULTATION: 01/31/2018 REFERRING PHYSICIAN: Dr. Atkins. REASON FOR CONSULTATION: Decubitus ulcerations. Thank you for referring this patient to me. HISTORY OF PRESENT ILLNESS: This is a 72-year-old male who comes in through Emergency Room because of decubitus ulcers involving the back and the right lower extremity with swelling of lower extremities, mostly on the right side. PAST MEDICAL HISTORY: Includes obesity, hyperlipidemia, gout, and sleep apnea. He claims he has not been able to ambulate for several years, but used a wheelchair up until early this year when he was unable to even do that. So he has been strictly bedbound for the last few months and started developing ulcers involving both lower extremities and the back. LABORATORY STUDIES: Show WBC to be normal. Hemoglobin also within normal limits. Chemistry: Glucose was 180. Hemoglobin A1c 9.2. Liver function test normal. PHYSICAL EXAMINATION: The patient appears to be oriented. He is obese and very difficult to examine the back region. He finally was turned over slightly and there are superficial ulceration involving most of the back, but not the sacral area. There is also a superficial ulceration of the right heel, minimal one on the left side. There is moderate swelling of both legs, worse on the right side. Pedal pulses are not palpable. PLAN: We will order arterial and venous Doppler of the lower extremities. Local wound care will be instituted and debridement when necessary. Air mattress will also be ordered. JOB# [id number]
[2018-01-31] MEDS: Atorvastatin Calcium 10 MG TAB PO SCH (20:41)
--- NOTE | 2018-01-31 22:08 | General Progress Note ---
Subjective - Review of Systems Service Date: 01/31/18 Subjective: awake, afebrile nad Objective - Results Result Diagrams: 01/31/18 05:00 01/31/18 05:00 Recent Labs: Laboratory Last Values WBC 8.0 Th/cmm (4.8-10.8) 01/31/18 05:00 RBC 4.79 Mil/cmm (3.80-5.80) 01/31/18 05:00 Hgb 12.5 gm/dL (12-16) 01/31/18 05:00 Hct 37.6 % (41.0-60) L 01/31/18 05:00 MCV 78.5 fl (80-99) L 01/31/18 05:00 MCH 26.0 pg (27.0-31.0) L 01/31/18 05:00 MCHC Differential 33.2 pg (28.0-36.0) 01/31/18 05:00 RDW 15.2 % (11.5-20.0) 01/31/18 05:00 Plt Count 294 Th/cmm (150-400) 01/31/18 05:00 MPV 6.4 fl 01/31/18 05:00 Neutrophils % 66.6 % (40.0-80.0) 01/31/18 05:00 Lymphocytes % 22.4 % (20.0-50.0) 01/31/18 05:00 Monocytes % 9.4 % (2.0-10.0) 01/31/18 05:00 Eosinophils % 0.9 % (0.0-5.0) 01/31/18 05:00 Basophils % 0.7 % (0.0-2.0) 01/31/18 05:00 Sodium 137 mEq/L (136-145) 01/31/18 05:00 Potassium 3.6 mEq/L (3.5-5.1) 01/31/18 05:00 Chloride 102 mEq/L (98-107) 01/31/18 05:00 Carbon Dioxide 25.7 mEq/L (21.0-31.0) 01/31/18 05:00 Anion Gap 12.9 (7.0-16.0) 01/31/18 05:00 BUN 12 mg/dL (7-25) 01/31/18 05:00 Creatinine 0.5 mg/dL (0.7-1.3) L 01/31/18 05:00 Est GFR ( Amer) TNP 01/31/18 05:00 Est GFR (Non-Af Amer) TNP 01/31/18 05:00 BUN/Creatinine Ratio 24.0 01/31/18 05:00 Glucose 187 mg/dL (70-105) H 01/31/18 05:00 POC Glucose 174 MG/DL (70 - 105) H 01/31/18 20:29 Hemoglobin A1c % 9.2 % (4.0-6.0) H 01/30/18 13:50 Calcium 9.6 mg/dL (8.6-10.3) 01/31/18 05:00 Total Bilirubin 0.5 mg/dL (0.3-1.0) 01/30/18 13:20 AST 16 U/L (13-39) 01/30/18 13:20 ALT 20 U/L (7-52) 01/30/18 13:20 Alkaline Phosphatase 107 U/L (34-104) H 01/30/18 13:20 Ammonia 29 umol/L (16-53) 01/30/18 13:50 Total Protein 7.1 gm/dL (6.0-8.3) 01/30/18 13:20 Albumin 4.0 gm/dL (4.2-5.5) L 01/30/18 13:20 Globulin 3.1 gm/dL 01/30/18 13:20 Albumin/Globulin Ratio 1.3 (1.0-1.8) 01/30/18 13:20 Urine Source CLEAN C 01/30/18 18:45 Urine Color YELLOW 01/30/18 18:45 Urine Clarity CLEAR (CLEAR) 01/30/18 18:45 Urine pH 5.5 (4.6 - 8.0) 01/30/18 18:45 Ur Specific [place] 1.025 (1.005-1.030) 01/30/18 18:45 Urine Protein NEGATIVE mg/dL (NEGATIVE) 01/30/18 18:45 Urine Glucose (UA) NEGATIVE mg/dL (NEGATIVE) 01/30/18 18:45 Urine Ketones NEGATIVE mg/dL (NEGATIVE) 01/30/18 18:45 Urine Blood NEGATIVE (NEGATIVE) 01/30/18 18:45 Urine Nitrate NEGATIVE (NEGATIVE) 01/30/18 18:45 Urine Bilirubin NEGATIVE (NEGATIVE) 01/30/18 18:45 Urine Urobilinogen 0.2 E.U./dL (0.2 - 1.0) 01/30/18 18:45 Ur Leukocyte Esterase NEGATIVE (NEGATIVE) 01/30/18 18:45 Urine RBC 0-2 /hpf (0-5) H 01/30/18 18:45 Urine WBC 0-2 /hpf (0-5) 01/30/18 18:45 Ur Epithelial Cells OCCASIONAL /lpf (FEW) 01/30/18 18:45 Urine Bacteria OCCASIONAL /hpf (NONE SEEN) 01/30/18 18:45 - Physical Exam Vitals and I&O: Vital Signs Temp 98.5 F 01/31/18 15:49 Pulse 86 01/31/18 15:49 Resp 18 01/31/18 15:49 BP 107/59 01/31/18 15:49 Pulse Ox 93 01/31/18 15:49 Intake & Output 01/31/18 01/31/18 02/01/18 06:59 18:59 06:59 Intake Total 750 1000 Balance 750 1000 Weight (lbs) 112.491 kg 112.491 kg Intake: Oral 750 1000 Other: # Voids 3 # Bowel Movements 0 Weight Source Bedscale Bedscale Active Medications: Current Medications Acetaminophen/Hydrocodone Bitart ([place] 5mg/325mg) 1 tab PO BID [facility] Stop: 04/01/18 08:59 Last Admin: 01/31/18 16:52 Dose: 1 tab Alendronate Sodium (Fosamax) 70 mg PO Th@0730 [facility] Stop: 04/03/18 07:29 Allopurinol (Zyloprim) 300 mg PO DAILY [facility] Stop: 04/01/18 08:59 Last Admin: 01/31/18 10:07 Dose: 300 mg Aripiprazole (Abilify) 5 mg PO DAILY [facility]; Protocol Stop: 04/01/18 08:59 Last Admin: 01/31/18 10:08 Dose: 5 mg Atorvastatin Calcium (Lipitor) 20 mg PO HS [facility] Stop: 03/31/18 20:59 Last Admin: 01/31/18 20:41 Dose: 20 mg Baclofen (Lioresal) 10 mg PO QPM [facility] Stop: 04/01/18 16:59 Last Admin: 01/31/18 16:51 Dose: 10 mg Baclofen (Lioresal) 20 mg PO DAILY [facility] Stop: 04/01/18 08:59 Last Admin: 01/31/18 10:11 Dose: 20 mg Cholecalciferol (Vitamin D3) 5,000 iu PO DAILY [facility] Stop: 04/01/18 08:59 Last Admin: 01/31/18 10:07 Dose: 5,000 iu Docusate Sodium (Colace) 250 mg PO BID [facility] Stop: 04/01/18 08:59 Last Admin: 01/31/18 16:51 Dose: 250 mg Fenofibrate (Tricor) 134 mg PO DAILY [facility] Stop: 04/01/18 08:59 Last Admin: 01/31/18 10:08 Dose: 134 mg Furosemide (Lasix) 20 mg PO DAILY [facility] Stop: 04/01/18 08:59 Last Admin: 01/31/18 10:09 Dose: 20 mg Gabapentin (Neurontin) 300 mg PO BID [facility] Stop: 04/01/18 08:59 Last Admin: 01/31/18 16:52 Dose: 300 mg Insulin Aspart (Novolog Insulin Sliding Scale) 0 units SUBQ ACHS [facility]; Protocol Stop: 03/31/18 20:59 Last Admin: 01/31/18 20:41 Dose: 2 units Lamotrigine (Lamictal) 75 mg PO BID [facility] Stop: 04/01/18 08:59 Last Admin: 01/31/18 16:57 Dose: 75 mg Metformin HCl (Glucophage) 500 mg PO BIDWM [facility] Stop: 04/01/18 07:59 Last Admin: 01/31/18 18:02 Dose: 500 mg Morphine Sulfate (Morphine) 1 mg IVP Q3H PRN PRN Reason: Pain (Moderate) Stop: 03/31/18 20:01 Last Admin: 01/30/18 20:57 Dose: 1 mg Morphine Sulfate (Morphine) 2 mg IVP Q3H PRN PRN Reason: Pain (Severe) Stop: 03/31/18 20:02 Tamsulosin HCl (Flomax) 0.4 mg PO DAILY [facility] Stop: 04/01/18 08:59 Last Admin: 01/31/18 10:09 Dose: 0.4 mg General: No acute distress HEENT: Atraumatic Neck: Supple Lungs: Normal air movement Abdomen: Bowel sounds Skin: Other (lower back ulcer , right heel ulcer) Assessment/Plan - Assessment Assessment: 1. Bilateral low back ulcer. 2. Right heel ulcer. 3. Diabetes mellitus type 2. 4. Hypertension. 5. Obesity. 6. Sleep apnea. 7. Left lower extremity swelling. Lymphedema. Rule out DVT. - Plan Plan: iv antibiotic as per id wound care cpm Nutritional Asmnt/Malnutr-PDOC - Dietary Evaluation Malnutrition Findings (Please click <Entered> for more info): Nutritional Asmnt/Malnutrition Start: 01/31/18 16: 06 Text: Status: Complete Freq: Protocol: Document 01/31/18 16:06 LCTHOG (Rec: 01/31/18 16:23 [email or web address] [id number]) Nutritional Asmnt/Malnutrition Patient General Information Nutritional Screening High Risk Diagnosis general weak, multiple decubitus, obesity, sleep apne Pertinent Medical Hx/Surgical Hx HTn, Dm, hyperlipidemia, gout Subjective Information Pt seen lying in bed at time of visit, not willing to talk. Pt indicated appetite fair. Pt consumed about 50% of lunch tray. Current Diet Order/ Nutrition Support low sodium, ADA Pertinent Medications vit D3, colace, lasix, novolog , glucophage Pertinent Labs 6/5 Cr 0.5, glucose 187, 184- 260 6/4 POC 150, A1c 9.2 Nutritional Hx/Data Height 1.85 m Height (Calculated Centimeters) 185.4 Current Weight (lbs) 112.491 kg Weight (Calculated Kilograms) 112.5 Weight (Calculated Grams) 213718.9 [place] Body Weight 186 Body Mass Index (BMI) 32.7 Weight Status Obese GI Symptoms GI Symptoms None Last BM not indicated Difficult in: None Skin Integrity/Comment: ulcer to right foot and sacrum Current %PO Poor (25-49%) Estimated Nutritional Goals BEE in Kcals: Adj wt of IBW Calories/Kcals/Kg 23-27 Kcals Calculated [id number] Protein: Adj wt of IBW Protein g/k Protein Calculated 91 Fluid: ml 2092-2457ml (1ml/kcal) Nutritional Problem 1. Problem Problem altered nutrition related labs Etiology hx of DM Signs/Symptoms: glucose 187, POC 184-260, A1c 9.2 Malnutrition Alert Is there a minimum of two criteria No selected? Query Text:Check all the applicable criteria. A minimum of two criteria are recommended for diagnosis of either severe or non-severe malnutrition. Malnutrition Related to Morbid Obesity Malnutrition related to morbid obesity No Intervention/Recommendation Comments 1. Continue with low sodium, ADA diet as ordered. Provide nutrition education when appropriate. 2. Recommend adding Arginaid BID for wound healing. 3. Monitor PO intake, wt, labs and skin integrity 4. F/U as high risk in 2-3 days, 02/02-02/03 Expected Outcomes/Goals Expected Outcomes/Goals 1. PO intake to meet at least 75% of nutritional needs. 2. Wt stability, skin to remain intact, labs to approach WNL.
[2018-02-01] MEDS: INSULIN ASPART SLIDING SCALE 100 UNITS/ML UNIT SUBQ SCH ×4 (07:35→20:47)
[2018-02-01] MEDS: Hydrocodone/APAP 5mg/325mg Tab PO SCH ×2 (08:58→17:15)
[2018-02-01] MEDS: Multivitamin w/ Minerals Tab PO SCH (09:00)
[2018-02-01] MEDS: Fenofibrate, Micronized 134 mg Cap PO SCH (09:00)
--- NOTE | 2018-02-01 09:17 | Infectious Disease Prog Note ---
Infectious Disease Subjective - Review of Systems Service Date: 02/01/18 Subjective: There is no new change, Infectious Disease Objective - Results Result Diagrams: 01/31/18 05:00 01/31/18 05:00 Recent Labs: Laboratory Last Values WBC 8.0 Th/cmm (4.8-10.8) 01/31/18 05:00 RBC 4.79 Mil/cmm (3.80-5.80) 01/31/18 05:00 Hgb 12.5 gm/dL (12-16) 01/31/18 05:00 Hct 37.6 % (41.0-60) L 01/31/18 05:00 MCV 78.5 fl (80-99) L 01/31/18 05:00 MCH 26.0 pg (27.0-31.0) L 01/31/18 05:00 MCHC Differential 33.2 pg (28.0-36.0) 01/31/18 05:00 RDW 15.2 % (11.5-20.0) 01/31/18 05:00 Plt Count 294 Th/cmm (150-400) 01/31/18 05:00 MPV 6.4 fl 01/31/18 05:00 Neutrophils % 66.6 % (40.0-80.0) 01/31/18 05:00 Lymphocytes % 22.4 % (20.0-50.0) 01/31/18 05:00 Monocytes % 9.4 % (2.0-10.0) 01/31/18 05:00 Eosinophils % 0.9 % (0.0-5.0) 01/31/18 05:00 Basophils % 0.7 % (0.0-2.0) 01/31/18 05:00 Sodium 137 mEq/L (136-145) 01/31/18 05:00 Potassium 3.6 mEq/L (3.5-5.1) 01/31/18 05:00 Chloride 102 mEq/L (98-107) 01/31/18 05:00 Carbon Dioxide 25.7 mEq/L (21.0-31.0) 01/31/18 05:00 Anion Gap 12.9 (7.0-16.0) 01/31/18 05:00 BUN 12 mg/dL (7-25) 01/31/18 05:00 Creatinine 0.5 mg/dL (0.7-1.3) L 01/31/18 05:00 Est GFR ( Amer) TNP 01/31/18 05:00 Est GFR (Non-Af Amer) TNP 01/31/18 05:00 BUN/Creatinine Ratio 24.0 01/31/18 05:00 Glucose 187 mg/dL (70-105) H 01/31/18 05:00 POC Glucose 169 MG/DL (70 - 105) H 02/01/18 06:41 Hemoglobin A1c % 9.2 % (4.0-6.0) H 01/30/18 13:50 Calcium 9.6 mg/dL (8.6-10.3) 01/31/18 05:00 Total Bilirubin 0.5 mg/dL (0.3-1.0) 01/30/18 13:20 AST 16 U/L (13-39) 01/30/18 13:20 ALT 20 U/L (7-52) 01/30/18 13:20 Alkaline Phosphatase 107 U/L (34-104) H 01/30/18 13:20 Ammonia 29 umol/L (16-53) 01/30/18 13:50 Total Protein 7.1 gm/dL (6.0-8.3) 01/30/18 13:20 Albumin 4.0 gm/dL (4.2-5.5) L 01/30/18 13:20 Globulin 3.1 gm/dL 01/30/18 13:20 Albumin/Globulin Ratio 1.3 (1.0-1.8) 01/30/18 13:20 Urine Source CLEAN C 01/30/18 18:45 Urine Color YELLOW 01/30/18 18:45 Urine Clarity CLEAR (CLEAR) 01/30/18 18:45 Urine pH 5.5 (4.6 - 8.0) 01/30/18 18:45 Ur Specific [place] 1.025 (1.005-1.030) 01/30/18 18:45 Urine Protein NEGATIVE mg/dL (NEGATIVE) 01/30/18 18:45 Urine Glucose (UA) NEGATIVE mg/dL (NEGATIVE) 01/30/18 18:45 Urine Ketones NEGATIVE mg/dL (NEGATIVE) 01/30/18 18:45 Urine Blood NEGATIVE (NEGATIVE) 01/30/18 18:45 Urine Nitrate NEGATIVE (NEGATIVE) 01/30/18 18:45 Urine Bilirubin NEGATIVE (NEGATIVE) 01/30/18 18:45 Urine Urobilinogen 0.2 E.U./dL (0.2 - 1.0) 01/30/18 18:45 Ur Leukocyte Esterase NEGATIVE (NEGATIVE) 01/30/18 18:45 Urine RBC 0-2 /hpf (0-5) H 01/30/18 18:45 Urine WBC 0-2 /hpf (0-5) 01/30/18 18:45 Ur Epithelial Cells OCCASIONAL /lpf (FEW) 01/30/18 18:45 Urine Bacteria OCCASIONAL /hpf (NONE SEEN) 01/30/18 18:45 - Physical Exam Vitals and I&O: Vital Signs Temp 98.3 F 01/31/18 20:00 Pulse 93 01/31/18 20:00 Resp 17 02/01/18 08:32 BP 119/64 02/01/18 09:00 Pulse Ox 93 01/31/18 15:49 Intake & Output 01/31/18 02/01/18 02/01/18 18:59 06:59 18:59 Intake Total 1000 250 Balance 1000 250 Weight (lbs) 112.491 kg 112.491 kg Intake: Oral 1000 250 Other: # Voids 3 0 # Bowel Movements 0 0 Weight Source Bedscale Bedscale Active Medications: Current Medications Acetaminophen/Hydrocodone Bitart ([place] 5mg/325mg) 1 tab PO BID [facility] Stop: 04/01/18 08:59 Last Admin: 02/01/18 08:58 Dose: 1 tab Alendronate Sodium (Fosamax) 70 mg PO Th@0730 [facility] Stop: 04/03/18 07:29 Allopurinol (Zyloprim) 300 mg PO DAILY [facility] Stop: 04/01/18 08:59 Last Admin: 02/01/18 08:59 Dose: 300 mg Aripiprazole (Abilify) 5 mg PO DAILY [facility]; Protocol Stop: 04/01/18 08:59 Last Admin: 02/01/18 09:01 Dose: 5 mg Atorvastatin Calcium (Lipitor) 20 mg PO HS [facility] Stop: 03/31/18 20:59 Last Admin: 01/31/18 20:41 Dose: 20 mg Baclofen (Lioresal) 10 mg PO QPM [facility] Stop: 04/01/18 16:59 Last Admin: 01/31/18 16:51 Dose: 10 mg Baclofen (Lioresal) 20 mg PO DAILY [facility] Stop: 04/01/18 08:59 Last Admin: 02/01/18 09:00 Dose: 20 mg Cholecalciferol (Vitamin D3) 5,000 iu PO DAILY [facility] Stop: 04/01/18 08:59 Last Admin: 02/01/18 08:59 Dose: 5,000 iu Docusate Sodium (Colace) 250 mg PO BID [facility] Stop: 04/01/18 08:59 Last Admin: 02/01/18 09:00 Dose: 250 mg Fenofibrate (Tricor) 134 mg PO DAILY [facility] Stop: 04/01/18 08:59 Last Admin: 02/01/18 09:00 Dose: 134 mg Furosemide (Lasix) 20 mg PO DAILY [facility] Stop: 04/01/18 08:59 Last Admin: 02/01/18 09:00 Dose: 20 mg Gabapentin (Neurontin) 300 mg PO BID [facility] Stop: 04/01/18 08:59 Last Admin: 02/01/18 09:00 Dose: 300 mg Insulin Aspart (Novolog Insulin Sliding Scale) 0 units SUBQ ACHS [facility]; Protocol Stop: 03/31/18 20:59 Last Admin: 02/01/18 07:35 Dose: Not Given Lamotrigine (Lamictal) 75 mg PO BID [facility] Stop: 04/01/18 08:59 Last Admin: 02/01/18 09:00 Dose: 75 mg Metformin HCl (Glucophage) 500 mg PO BIDWM [facility] Stop: 04/01/18 07:59 Last Admin: 02/01/18 09:00 Dose: 500 mg Morphine Sulfate (Morphine) 1 mg IVP Q3H PRN PRN Reason: Pain (Moderate) Stop: 03/31/18 20:01 Last Admin: 01/30/18 20:57 Dose: 1 mg Morphine Sulfate (Morphine) 2 mg IVP Q3H PRN PRN Reason: Pain (Severe) Stop: 03/31/18 20:02 Tamsulosin HCl (Flomax) 0.4 mg PO DAILY [facility] Stop: 04/01/18 08:59 Last Admin: 02/01/18 09:01 Dose: 0.4 mg General: no acute distress, well developed, well nourished HEENT: atraumatic, normocephalic, PERRLA, EOMI Neck: supple, no thyromegaly Cardiovascular: S1S2, regular Lungs: clear to auscultation bilaterally, clear to percussion Abdomen: soft, no tender, no distended Extremities: no cyanosis, no clubbing, no edema Neurological: awake, alert, oriented Skin: intact Infectious Disease Assmt/Plan - Assessment Assessment: 1. Bilateral low back ulcer. 2. Right heel ulcer. 3. Diabetes mellitus type 2. 4. Hypertension. 5. Obesity. 6. Sleep apnea. 7. Left lower extremity swelling. Lymphedema. Rule out DVT. - Plan Plan: cpm. Nutritional Asmnt/Malnutr-PDOC - Dietary Evaluation Malnutrition Findings (Please click <Entered> for more info): Nutritional Asmnt/Malnutrition Start: 01/31/18 16: 06 Text: Status: Complete Freq: Protocol: Document 01/31/18 16:06 ROMANA (Rec: 01/31/18 16:23 [email or web address]) Nutritional Asmnt/Malnutrition Patient General Information Nutritional Screening High Risk Diagnosis general weak, multiple decubitus, obesity, sleep apne Pertinent Medical Hx/Surgical Hx HTn, Dm, hyperlipidemia, gout Subjective Information Pt seen lying in bed at time of visit, not willing to talk. Pt indicated appetite fair. Pt consumed about 50% of lunch tray. Current Diet Order/ Nutrition Support low sodium, ADA Pertinent Medications vit D3, colace, lasix, novolog , glucophage Pertinent Labs 6/5 Cr 0.5, glucose 187, 184- 260 6/4 POC 150, A1c 9.2 Nutritional Hx/Data Height 1.85 m Height (Calculated Centimeters) 185.4 Current Weight (lbs) 112.491 kg Weight (Calculated Kilograms) 112.5 Weight (Calculated Grams) 435140.9 [place] Body Weight 186 Body Mass Index (BMI) 32.7 Weight Status Obese GI Symptoms GI Symptoms None Last BM not indicated Difficult in: None Skin Integrity/Comment: ulcer to right foot and sacrum Current %PO Poor (25-49%) Estimated Nutritional Goals BEE in Kcals: Adj wt of IBW Calories/Kcals/Kg 23-27 Kcals Calculated 7927-5339 Protein: Adj wt of IBW Protein g/k Protein Calculated 91 Fluid: ml 2093-2457ml (1ml/kcal) Nutritional Problem 1. Problem Problem altered nutrition related labs Etiology hx of DM Signs/Symptoms: glucose 187, POC 184-260, A1c 9.2 Malnutrition Alert Is there a minimum of two criteria No selected? Query Text:Check all the applicable criteria. A minimum of two criteria are recommended for diagnosis of either severe or non-severe malnutrition. Malnutrition Related to Morbid Obesity Malnutrition related to morbid obesity No Intervention/Recommendation Comments 1. Continue with low sodium, ADA diet as ordered. Provide nutrition education when appropriate. 2. Recommend adding Arginaid BID for wound healing. 3. Monitor PO intake, wt, labs and skin integrity 4. F/U as high risk in 2-3 days, 02/02-02/03 Expected Outcomes/Goals Expected Outcomes/Goals 1. PO intake to meet at least 75% of nutritional needs. 2. Wt stability, skin to remain intact, labs to approach WNL.
--- NOTE | 2018-02-01 10:01 | Diagnostic Imaging Report ---
Bilateral lower extremity Doppler venous ultrasound exam HISTORY: Pain/swelling Sonographic sector images were obtained through the deep venous systems of both legs. Associated Doppler data was obtained. The exam demonstrates patency of the common femoral, superficial femoral, popliteal, and posterior tibial veins bilaterally. Specifically, no thrombus is seen. There are normal compressibility and augmentation responses. IMPRESSION: Negative exam for deep vein thrombophlebitis.
--- NOTE | 2018-02-01 10:02 | Diagnostic Imaging Report ---
Bilateral lower extremity Doppler arterial ultrasound exam HISTORY: Peripheral vascular disease, pain Sonographic sector images were obtained through the arterial systems of both legs. Associated Doppler data was obtained. The exam of the right leg demonstrates triphasic waveforms through the common femoral, superficial femoral, popliteal, anterior tibial, posterior tibial, and dorsalis pedis arteries. No significant narrowing is sonographically identified. Slight increase in velocity noted within the popliteal and posterior tibial arteries. The right ankle-brachial index is normal (1.1). The exam of the left leg demonstrates triphasic waveforms throughout the arterial system. Slight increase in velocity noted below the knee region. The ankle-brachial index is normal (1.0). No significant focal narrowing or occlusion sonographically identified. IMPRESSION: 1. No significant focal arterial narrowing or occlusion identified.
--- NOTE | 2018-02-01 14:20 | General Progress Note ---
Subjective - Review of Systems Service Date: 02/01/18 Events since last encounter: arterial study negative Plan: debridement in AM Objective - Results Result Diagrams: 01/31/18 05:00 01/31/18 05:00 Recent Labs: Laboratory Last Values WBC 8.0 Th/cmm (4.8-10.8) 01/31/18 05:00 RBC 4.79 Mil/cmm (3.80-5.80) 01/31/18 05:00 Hgb 12.5 gm/dL (12-16) 01/31/18 05:00 Hct 37.6 % (41.0-60) L 01/31/18 05:00 MCV 78.5 fl (80-99) L 01/31/18 05:00 MCH 26.0 pg (27.0-31.0) L 01/31/18 05:00 MCHC Differential 33.2 pg (28.0-36.0) 01/31/18 05:00 RDW 15.2 % (11.5-20.0) 01/31/18 05:00 Plt Count 294 Th/cmm (150-400) 01/31/18 05:00 MPV 6.4 fl 01/31/18 05:00 Neutrophils % 66.6 % (40.0-80.0) 01/31/18 05:00 Lymphocytes % 22.4 % (20.0-50.0) 01/31/18 05:00 Monocytes % 9.4 % (2.0-10.0) 01/31/18 05:00 Eosinophils % 0.9 % (0.0-5.0) 01/31/18 05:00 Basophils % 0.7 % (0.0-2.0) 01/31/18 05:00 Sodium 137 mEq/L (136-145) 01/31/18 05:00 Potassium 3.6 mEq/L (3.5-5.1) 01/31/18 05:00 Chloride 102 mEq/L (98-107) 01/31/18 05:00 Carbon Dioxide 25.7 mEq/L (21.0-31.0) 01/31/18 05:00 Anion Gap 12.9 (7.0-16.0) 01/31/18 05:00 BUN 12 mg/dL (7-25) 01/31/18 05:00 Creatinine 0.5 mg/dL (0.7-1.3) L 01/31/18 05:00 Est GFR ( Amer) TNP 01/31/18 05:00 Est GFR (Non-Af Amer) TNP 01/31/18 05:00 BUN/Creatinine Ratio 24.0 01/31/18 05:00 Glucose 187 mg/dL (70-105) H 01/31/18 05:00 POC Glucose 162 MG/DL (70 - 105) H 02/01/18 11:27 Hemoglobin A1c % 9.2 % (4.0-6.0) H 01/30/18 13:50 Calcium 9.6 mg/dL (8.6-10.3) 01/31/18 05:00 Total Bilirubin 0.5 mg/dL (0.3-1.0) 01/30/18 13:20 AST 16 U/L (13-39) 01/30/18 13:20 ALT 20 U/L (7-52) 01/30/18 13:20 Alkaline Phosphatase 107 U/L (34-104) H 01/30/18 13:20 Ammonia 29 umol/L (16-53) 01/30/18 13:50 Total Protein 7.1 gm/dL (6.0-8.3) 01/30/18 13:20 Albumin 4.0 gm/dL (4.2-5.5) L 01/30/18 13:20 Globulin 3.1 gm/dL 01/30/18 13:20 Albumin/Globulin Ratio 1.3 (1.0-1.8) 01/30/18 13:20 Urine Source CLEAN C 01/30/18 18:45 Urine Color YELLOW 01/30/18 18:45 Urine Clarity CLEAR (CLEAR) 01/30/18 18:45 Urine pH 5.5 (4.6 - 8.0) 01/30/18 18:45 Ur Specific [place] 1.025 (1.005-1.030) 01/30/18 18:45 Urine Protein NEGATIVE mg/dL (NEGATIVE) 01/30/18 18:45 Urine Glucose (UA) NEGATIVE mg/dL (NEGATIVE) 01/30/18 18:45 Urine Ketones NEGATIVE mg/dL (NEGATIVE) 01/30/18 18:45 Urine Blood NEGATIVE (NEGATIVE) 01/30/18 18:45 Urine Nitrate NEGATIVE (NEGATIVE) 01/30/18 18:45 Urine Bilirubin NEGATIVE (NEGATIVE) 01/30/18 18:45 Urine Urobilinogen 0.2 E.U./dL (0.2 - 1.0) 01/30/18 18:45 Ur Leukocyte Esterase NEGATIVE (NEGATIVE) 01/30/18 18:45 Urine RBC 0-2 /hpf (0-5) H 01/30/18 18:45 Urine WBC 0-2 /hpf (0-5) 01/30/18 18:45 Ur Epithelial Cells OCCASIONAL /lpf (FEW) 01/30/18 18:45 Urine Bacteria OCCASIONAL /hpf (NONE SEEN) 01/30/18 18:45 - Physical Exam Vitals and I&O: Vital Signs Temp 98.3 F 02/01/18 11:43 Pulse 82 02/01/18 11:43 Resp 18 02/01/18 11:43 BP 112/61 02/01/18 11:43 Pulse Ox 93 02/01/18 11:43 Intake & Output 01/31/18 02/01/18 02/01/18 18:59 06:59 18:59 Intake Total 1000 250 Balance 1000 250 Weight (lbs) 112.491 kg 112.491 kg Intake: Oral 1000 250 Other: # Voids 3 0 # Bowel Movements 0 0 Weight Source Bedscale Bedscale Active Medications: Current Medications Acetaminophen/Hydrocodone Bitart ([place] 5mg/325mg) 1 tab PO BID [facility] Stop: 04/01/18 08:59 Last Admin: 02/01/18 08:58 Dose: 1 tab Alendronate Sodium (Fosamax) 70 mg PO Th@0730 [facility] Stop: 04/03/18 07:29 Allopurinol (Zyloprim) 300 mg PO DAILY [facility] Stop: 04/01/18 08:59 Last Admin: 02/01/18 08:59 Dose: 300 mg Aripiprazole (Abilify) 5 mg PO DAILY [facility]; Protocol Stop: 04/01/18 08:59 Last Admin: 02/01/18 09:01 Dose: 5 mg Atorvastatin Calcium (Lipitor) 20 mg PO HS [facility] Stop: 03/31/18 20:59 Last Admin: 01/31/18 20:41 Dose: 20 mg Baclofen (Lioresal) 10 mg PO QPM [facility] Stop: 04/01/18 16:59 Last Admin: 01/31/18 16:51 Dose: 10 mg Baclofen (Lioresal) 20 mg PO DAILY [facility] Stop: 04/01/18 08:59 Last Admin: 02/01/18 09:00 Dose: 20 mg Cholecalciferol (Vitamin D3) 5,000 iu PO DAILY [facility] Stop: 04/01/18 08:59 Last Admin: 02/01/18 08:59 Dose: 5,000 iu Docusate Sodium (Colace) 250 mg PO BID [facility] Stop: 04/01/18 08:59 Last Admin: 02/01/18 09:00 Dose: 250 mg Fenofibrate (Tricor) 134 mg PO DAILY [facility] Stop: 04/01/18 08:59 Last Admin: 02/01/18 09:00 Dose: 134 mg Furosemide (Lasix) 20 mg PO DAILY [facility] Stop: 04/01/18 08:59 Last Admin: 02/01/18 09:00 Dose: 20 mg Gabapentin (Neurontin) 300 mg PO BID [facility] Stop: 04/01/18 08:59 Last Admin: 02/01/18 09:00 Dose: 300 mg Insulin Aspart (Novolog Insulin Sliding Scale) 0 units SUBQ ACHS [facility]; Protocol Stop: 03/31/18 20:59 Last Admin: 02/01/18 12:17 Dose: 2 units Lamotrigine (Lamictal) 75 mg PO BID [facility] Stop: 04/01/18 08:59 Last Admin: 02/01/18 09:00 Dose: 75 mg Metformin HCl (Glucophage) 500 mg PO BIDWM [facility] Stop: 04/01/18 07:59 Last Admin: 02/01/18 09:00 Dose: 500 mg Morphine Sulfate (Morphine) 1 mg IVP Q3H PRN PRN Reason: Pain (Moderate) Stop: 03/31/18 20:01 Last Admin: 01/30/18 20:57 Dose: 1 mg Morphine Sulfate (Morphine) 2 mg IVP Q3H PRN PRN Reason: Pain (Severe) Stop: 03/31/18 20:02 Mupirocin (Bactroban Oint) 1 appl NS BID [facility] Stop: 02/06/18 16:59 Tamsulosin HCl (Flomax) 0.4 mg PO DAILY [facility] Stop: 04/01/18 08:59 Last Admin: 02/01/18 09:01 Dose: 0.4 mg General: No acute distress HEENT: Atraumatic Neck: Supple Lungs: Normal air movement Abdomen: Bowel sounds Skin: Other (lower back ulcer , right heel ulcer) Nutritional Asmnt/Malnutr-PDOC - Dietary Evaluation Malnutrition Findings (Please click <Entered> for more info): Nutritional Asmnt/Malnutrition Start: 01/31/18 16: 06 Text: Status: Complete Freq: Protocol: Document 01/31/18 16:06 LCHENG (Rec: 01/31/18 16:23 [email or web address]) Nutritional Asmnt/Malnutrition Patient General Information Nutritional Screening High Risk Diagnosis general weak, multiple decubitus, obesity, sleep apne Pertinent Medical Hx/Surgical Hx HTn, Dm, hyperlipidemia, gout Subjective Information Pt seen lying in bed at time of visit, not willing to talk. Pt indicated appetite fair. Pt consumed about 50% of lunch tray. Current Diet Order/ Nutrition Support low sodium, ADA Pertinent Medications vit D3, colace, lasix, novolog , glucophage Pertinent Labs 01/31 Cr 0.5, glucose 187, 184- 260 6/ POC 150, A1c 9.2 Nutritional Hx/Data Height 1.85 m Height (Calculated Centimeters) 185.4 Current Weight (lbs) 112.491 kg Weight (Calculated Kilograms) 112.5 Weight (Calculated Grams) 168745.9 [place] Body Weight 186 Body Mass Index (BMI) 32.7 Weight Status Obese GI Symptoms GI Symptoms None Last BM not indicated Difficult in: None Skin Integrity/Comment: ulcer to right foot and sacrum Current %PO Poor (25-49%) Estimated Nutritional Goals BEE in Kcals: Adj wt of IBW Calories/Kcals/Kg 23-27 Kcals Calculated 0473-9963 Protein: Adj wt of IBW Protein g/k Protein Calculated 91 Fluid: ml 2093-2457ml (1ml/kcal) Nutritional Problem 1. Problem Problem altered nutrition related labs Etiology hx of DM Signs/Symptoms: glucose 187, POC 184-260, A1c 9.2 Malnutrition Alert Is there a minimum of two criteria No selected? Query Text:Check all the applicable criteria. A minimum of two criteria are recommended for diagnosis of either severe or non-severe malnutrition. Malnutrition Related to Morbid Obesity Malnutrition related to morbid obesity No Intervention/Recommendation Comments 1. Continue with low sodium, ADA diet as ordered. Provide nutrition education when appropriate. 2. Recommend adding Arginaid BID for wound healing. 3. Monitor PO intake, wt, labs and skin integrity 4. F/U as high risk in 2-3 days, 02/02-02/03 Expected Outcomes/Goals Expected Outcomes/Goals 1. PO intake to meet at least 75% of nutritional needs. 2. Wt stability, skin to remain intact, labs to approach WNL.
--- NOTE | 2018-02-01 16:02 | General Progress Note ---
Subjective - Review of Systems Service Date: 02/01/18 Subjective: awake, no distress Objective - Results Result Diagrams: 01/31/18 05:00 01/31/18 05:00 Recent Labs: Laboratory Last Values WBC 8.0 Th/cmm (4.8-10.8) 01/31/18 05:00 RBC 4.79 Mil/cmm (3.80-5.80) 01/31/18 05:00 Hgb 12.5 gm/dL (12-16) 01/31/18 05:00 Hct 37.6 % (41.0-60) L 01/31/18 05:00 MCV 78.5 fl (80-99) L 01/31/18 05:00 MCH 26.0 pg (27.0-31.0) L 01/31/18 05:00 MCHC Differential 33.2 pg (28.0-36.0) 01/31/18 05:00 RDW 15.2 % (11.5-20.0) 01/31/18 05:00 Plt Count 294 Th/cmm (150-400) 01/31/18 05:00 MPV 6.4 fl 01/31/18 05:00 Neutrophils % 66.6 % (40.0-80.0) 01/31/18 05:00 Lymphocytes % 22.4 % (20.0-50.0) 01/31/18 05:00 Monocytes % 9.4 % (2.0-10.0) 01/31/18 05:00 Eosinophils % 0.9 % (0.0-5.0) 01/31/18 05:00 Basophils % 0.7 % (0.0-2.0) 01/31/18 05:00 Sodium 137 mEq/L (136-145) 01/31/18 05:00 Potassium 3.6 mEq/L (3.5-5.1) 01/31/18 05:00 Chloride 102 mEq/L (98-107) 01/31/18 05:00 Carbon Dioxide 25.7 mEq/L (21.0-31.0) 01/31/18 05:00 Anion Gap 12.9 (7.0-16.0) 01/31/18 05:00 BUN 12 mg/dL (7-25) 01/31/18 05:00 Creatinine 0.5 mg/dL (0.7-1.3) L 01/31/18 05:00 Est GFR ( Amer) TNP 01/31/18 05:00 Est GFR (Non-Af Amer) TNP 01/31/18 05:00 BUN/Creatinine Ratio 24.0 01/31/18 05:00 Glucose 187 mg/dL (70-105) H 01/31/18 05:00 POC Glucose 162 MG/DL (70 - 105) H 02/01/18 11:27 Hemoglobin A1c % 9.2 % (4.0-6.0) H 01/30/18 13:50 Calcium 9.6 mg/dL (8.6-10.3) 01/31/18 05:00 Total Bilirubin 0.5 mg/dL (0.3-1.0) 01/30/18 13:20 AST 16 U/L (13-39) 01/30/18 13:20 ALT 20 U/L (7-52) 01/30/18 13:20 Alkaline Phosphatase 107 U/L (34-104) H 01/30/18 13:20 Ammonia 29 umol/L (16-53) 01/30/18 13:50 Total Protein 7.1 gm/dL (6.0-8.3) 01/30/18 13:20 Albumin 4.0 gm/dL (4.2-5.5) L 01/30/18 13:20 Globulin 3.1 gm/dL 01/30/18 13:20 Albumin/Globulin Ratio 1.3 (1.0-1.8) 01/30/18 13:20 Urine Source CLEAN C 01/30/18 18:45 Urine Color YELLOW 01/30/18 18:45 Urine Clarity CLEAR (CLEAR) 01/30/18 18:45 Urine pH 5.5 (4.6 - 8.0) 01/30/18 18:45 Ur Specific [place] 1.025 (1.005-1.030) 01/30/18 18:45 Urine Protein NEGATIVE mg/dL (NEGATIVE) 01/30/18 18:45 Urine Glucose (UA) NEGATIVE mg/dL (NEGATIVE) 01/30/18 18:45 Urine Ketones NEGATIVE mg/dL (NEGATIVE) 01/30/18 18:45 Urine Blood NEGATIVE (NEGATIVE) 01/30/18 18:45 Urine Nitrate NEGATIVE (NEGATIVE) 01/30/18 18:45 Urine Bilirubin NEGATIVE (NEGATIVE) 01/30/18 18:45 Urine Urobilinogen 0.2 E.U./dL (0.2 - 1.0) 01/30/18 18:45 Ur Leukocyte Esterase NEGATIVE (NEGATIVE) 01/30/18 18:45 Urine RBC 0-2 /hpf (0-5) H 01/30/18 18:45 Urine WBC 0-2 /hpf (0-5) 01/30/18 18:45 Ur Epithelial Cells OCCASIONAL /lpf (FEW) 01/30/18 18:45 Urine Bacteria OCCASIONAL /hpf (NONE SEEN) 01/30/18 18:45 - Physical Exam Vitals and I&O: Vital Signs Temp 98.7 F 02/01/18 15:39 Pulse 83 02/01/18 15:39 Resp 18 02/01/18 15:39 BP 104/57 02/01/18 15:39 Pulse Ox 90 02/01/18 15:39 Intake & Output 01/31/18 02/01/18 02/01/18 18:59 06:59 18:59 Intake Total 1000 250 Balance 1000 250 Weight (lbs) 112.491 kg 112.491 kg Intake: Oral 1000 250 Other: # Voids 3 0 # Bowel Movements 0 0 Weight Source Bedscale Bedscale Active Medications: Current Medications Acetaminophen/Hydrocodone Bitart ([place] 5mg/325mg) 1 tab PO BID [facility] Stop: 04/01/18 08:59 Last Admin: 02/01/18 08:58 Dose: 1 tab Alendronate Sodium (Fosamax) 70 mg PO Th@0730 [facility] Stop: 04/03/18 07:29 Allopurinol (Zyloprim) 300 mg PO DAILY [facility] Stop: 04/01/18 08:59 Last Admin: 02/01/18 08:59 Dose: 300 mg Aripiprazole (Abilify) 5 mg PO DAILY [facility]; Protocol Stop: 04/01/18 08:59 Last Admin: 02/01/18 09:01 Dose: 5 mg Atorvastatin Calcium (Lipitor) 20 mg PO HS [facility] Stop: 03/31/18 20:59 Last Admin: 01/31/18 20:41 Dose: 20 mg Baclofen (Lioresal) 10 mg PO QPM [facility] Stop: 04/01/18 16:59 Last Admin: 01/31/18 16:51 Dose: 10 mg Baclofen (Lioresal) 20 mg PO DAILY [facility] Stop: 04/01/18 08:59 Last Admin: 02/01/18 09:00 Dose: 20 mg Cholecalciferol (Vitamin D3) 5,000 iu PO DAILY [facility] Stop: 04/01/18 08:59 Last Admin: 02/01/18 08:59 Dose: 5,000 iu Docusate Sodium (Colace) 250 mg PO BID [facility] Stop: 04/01/18 08:59 Last Admin: 02/01/18 09:00 Dose: 250 mg Fenofibrate (Tricor) 134 mg PO DAILY [facility] Stop: 04/01/18 08:59 Last Admin: 02/01/18 09:00 Dose: 134 mg Furosemide (Lasix) 20 mg PO DAILY [facility] Stop: 04/01/18 08:59 Last Admin: 02/01/18 09:00 Dose: 20 mg Gabapentin (Neurontin) 300 mg PO BID [facility] Stop: 04/01/18 08:59 Last Admin: 02/01/18 09:00 Dose: 300 mg Insulin Aspart (Novolog Insulin Sliding Scale) 0 units SUBQ ACHS [facility]; Protocol Stop: 03/31/18 20:59 Last Admin: 02/01/18 12:17 Dose: 2 units Lamotrigine (Lamictal) 75 mg PO BID [facility] Stop: 04/01/18 08:59 Last Admin: 02/01/18 09:00 Dose: 75 mg Metformin HCl (Glucophage) 500 mg PO BIDWM [facility] Stop: 04/01/18 07:59 Last Admin: 02/01/18 09:00 Dose: 500 mg Morphine Sulfate (Morphine) 1 mg IVP Q3H PRN PRN Reason: Pain (Moderate) Stop: 03/31/18 20:01 Last Admin: 01/30/18 20:57 Dose: 1 mg Morphine Sulfate (Morphine) 2 mg IVP Q3H PRN PRN Reason: Pain (Severe) Stop: 03/31/18 20:02 Mupirocin (Bactroban Oint) 1 appl NS BID [facility] Stop: 02/06/18 16:59 Tamsulosin HCl (Flomax) 0.4 mg PO DAILY [facility] Stop: 04/01/18 08:59 Last Admin: 02/01/18 09:01 Dose: 0.4 mg General: No acute distress HEENT: Atraumatic Neck: Supple Cardiovascular: Regular rate Lungs: Normal air movement Abdomen: Bowel sounds Skin: Other (lower back ulcer , right heel ulcer) Assessment/Plan - Assessment Assessment: Bilateral low back ulcer. Right heel ulcer. Diabetes mellitus type 2. Hypertension. Obesity. Sleep apnea. Left lower extremity swelling. Lymphedema. Rule out DVT. - Plan Plan: monitor vitals cpm Nutritional Asmnt/Malnutr-PDOC - Dietary Evaluation Malnutrition Findings (Please click <Entered> for more info): Nutritional Asmnt/Malnutrition Start: 01/31/18 16: 06 Text: Status: Complete Freq: Protocol: Document 01/31/18 16:06 ROMANAG (Rec: 01/31/18 16:23 THO [email or web address]) Nutritional Asmnt/Malnutrition Patient General Information Nutritional Screening High Risk Diagnosis general weak, multiple decubitus, obesity, sleep apne Pertinent Medical Hx/Surgical Hx HTn, Dm, hyperlipidemia, gout Subjective Information Pt seen lying in bed at time of visit, not willing to talk. Pt indicated appetite fair. Pt consumed about 50% of lunch tray. Current Diet Order/ Nutrition Support low sodium, ADA Pertinent Medications vit D3, colace, lasix, novolog , glucophage Pertinent Labs 6/5 Cr 0.5, glucose 187, 184- 260 6/4 POC 150, A1c 9.2 Nutritional Hx/Data Height 1.85 m Height (Calculated Centimeters) 185.4 Current Weight (lbs) 112.491 kg Weight (Calculated Kilograms) 112.5 Weight (Calculated Grams) 303495.9 [place] Body Weight 186 Body Mass Index (BMI) 32.7 Weight Status Obese GI Symptoms GI Symptoms None Last BM not indicated Difficult in: None Skin Integrity/Comment: ulcer to right foot and sacrum Current %PO Poor (25-49%) Estimated Nutritional Goals BEE in Kcals: Adj wt of IBW Calories/Kcals/Kg 23-27 Kcals Calculated 9632-5400 Protein: Adj wt of IBW Protein g/k Protein Calculated 91 Fluid: ml 3-2457ml (1ml/kcal) Nutritional Problem 1. Problem Problem altered nutrition related labs Etiology hx of DM Signs/Symptoms: glucose 187, POC 184-260, A1c 9.2 Malnutrition Alert Is there a minimum of two criteria No selected? Query Text:Check all the applicable criteria. A minimum of two criteria are recommended for diagnosis of either severe or non-severe malnutrition. Malnutrition Related to Morbid Obesity Malnutrition related to morbid obesity No Intervention/Recommendation Comments 1. Continue with low sodium, ADA diet as ordered. Provide nutrition education when appropriate. 2. Recommend adding Arginaid BID for wound healing. 3. Monitor PO intake, wt, labs and skin integrity 4. F/U as high risk in 2-3 days, 02/02-02/03 Expected Outcomes/Goals Expected Outcomes/Goals 1. PO intake to meet at least 75% of nutritional needs. 2. Wt stability, skin to remain intact, labs to approach WNL.
[2018-02-01] MEDS: Atorvastatin Calcium 10 MG TAB PO SCH (20:47)
[2018-02-02] MEDS: INSULIN ASPART SLIDING SCALE 100 UNITS/ML UNIT SUBQ SCH ×4 (06:39→21:22)
[2018-02-02] MEDS ORDERED: Venelex 60gm Tube TP ONE (06:54)
[2018-02-02 07:21] LABS: INR 1.04 (0.5-1.4); PROTHROMBIN TIME (TEST) 10.8 SECONDS (9.5-11.5)
[2018-02-02 07:25] LABS: % BASOPHILS 0.7 % (0.0-2.0); % EOSINOPHILS 1.3 % (0.0-5.0); % LYMPHOCYTES 25.1 % (20.0-50.0); % NEUTROPHILS 64.9 % (40.0-80.0); BASOPHILE ABSOLUTE 0.1 Th/cumm (0-0.2); EOSINOPHILE ABSOLUTE 0.1 Th/cmm (0.1-0.4); HEMATOCRIT 37.4 % (41.0-60); HEMOGLOBIN 12.2 gm/dL (12-16); LYMPHOCYTE ABSOLUTE 1.8 Th/cmm (1.5-3.0); MEAN CELL VOLUME 79.8 fl (80-99); MEAN CORPUSCULAR HGB CONC 32.7 pg (28.0-36.0); MEAN PLATELET VOLUME 6.6 fl; MONOCYTE ABSOLUTE 0.6 Th/cmm (0.3-1.0); NEUTROPHILE ABSOLUTE 4.7 Th/cmm (1.8-8.0); PLATELET COUNT 294 Th/cmm (150-400); RED BLOOD COUNT 4.69 Mil/cmm (3.80-5.80); RED CELL DISTRIBUTION WIDTH 14.9 % (11.5-20.0); WHITE BLOOD COUNT 7.3 Th/cmm (4.8-10.8)
[2018-02-02 07:30] LABS: ANION GAP 11.5 (7.0-16.0); BUN - UREA NITROGEN 12 mg/dL (7-25); CALCIUM SERUM 9.3 mg/dL (8.6-10.3); CARBON DIOXIDE 27.2 mEq/L (21.0-31.0); CHLORIDE 101 mEq/L (98-107); CREATININE - SERUM 0.5 mg/dL (0.7-1.3); GLUCOSE 168 mg/dL (70-105); POTASSIUM SERUM 3.7 mEq/L (3.5-5.1); SODIUM SERUM 136 mEq/L (136-145)
[2018-02-02] MEDS: Multivitamin w/ Minerals Tab PO SCH (08:14)
[2018-02-02] MEDS: Fenofibrate, Micronized 134 mg Cap PO SCH (08:14)
--- NOTE | 2018-02-02 08:19 | Diagnostic Imaging Report ---
CHEST X-RAY: AP view INDICATION: Pain, preop COMPARISON: None FINDINGS: Increased interstitial lung markings are noted. Patient is rotated. No focal consolidation or effusions. Heart size is normal. Degenerative changes of spine are noted. IMPRESSION: Increased interstitial lung markings. Findings may be chronic in etiology. A marginal degree of congestion cannot be excluded. Please correlate with clinical findings.
[2018-02-02] MEDS ORDERED: Midazolam 1mg/ml 2 ml vial IV ONE (09:06)
[2018-02-02] MEDS: Hydrocodone/APAP 5mg/325mg Tab PO SCH ×2 (11:28→16:41)
--- NOTE | 2018-02-02 15:36 | General Progress Note ---
Subjective - Review of Systems Service Date: 02/02/18 Subjective: awake, no distress denies pain Objective - Results Result Diagrams: 02/02/18 05:56 02/02/18 05:56 Recent Labs: Laboratory Last Values WBC 7.3 Th/cmm (4.8-10.8) 02/02/18 05:56 RBC 4.69 Mil/cmm (3.80-5.80) 02/02/18 05:56 Hgb 12.2 gm/dL (12-16) 02/02/18 05:56 Hct 37.4 % (41.0-60) L 02/02/18 05:56 MCV 79.8 fl (80-99) L 02/02/18 05:56 MCH 26.0 pg (27.0-31.0) L 02/02/18 05:56 MCHC Differential 32.7 pg (28.0-36.0) 02/02/18 05:56 RDW 14.9 % (11.5-20.0) 02/02/18 05:56 Plt Count 294 Th/cmm (150-400) 02/02/18 05:56 MPV 6.6 fl 02/02/18 05:56 Neutrophils % 64.9 % (40.0-80.0) 02/02/18 05:56 Lymphocytes % 25.1 % (20.0-50.0) 02/02/18 05:56 Monocytes % 8.0 % (2.0-10.0) 02/02/18 05:56 Eosinophils % 1.3 % (0.0-5.0) 02/02/18 05:56 Basophils % 0.7 % (0.0-2.0) 02/02/18 05:56 PT 10.8 SECONDS (9.5-11.5) 02/02/18 05:56 INR 1.04 (0.5-1.4) 02/02/18 05:56 Sodium 136 mEq/L (136-145) 02/02/18 05:56 Potassium 3.7 mEq/L (3.5-5.1) 02/02/18 05:56 Chloride 101 mEq/L (98-107) 02/02/18 05:56 Carbon Dioxide 27.2 mEq/L (21.0-31.0) 02/02/18 05:56 Anion Gap 11.5 (7.0-16.0) 02/02/18 05:56 BUN 12 mg/dL (7-25) 02/02/18 05:56 Creatinine 0.5 mg/dL (0.7-1.3) L 02/02/18 05:56 Est GFR ( Amer) TNP 02/02/18 05:56 Est GFR (Non-Af Amer) TNP 02/02/18 05:56 BUN/Creatinine Ratio 24.0 02/02/18 05:56 Glucose 168 mg/dL (70-105) H 02/02/18 05:56 POC Glucose 149 MG/DL (70 - 105) H 02/02/18 11:10 Hemoglobin A1c % 9.2 % (4.0-6.0) H 01/30/18 13:50 Calcium 9.3 mg/dL (8.6-10.3) 02/02/18 05:56 Total Bilirubin 0.5 mg/dL (0.3-1.0) 01/30/18 13:20 AST 16 U/L (13-39) 01/30/18 13:20 ALT 20 U/L (7-52) 01/30/18 13:20 Alkaline Phosphatase 107 U/L (34-104) H 01/30/18 13:20 Ammonia 29 umol/L (16-53) 01/30/18 13:50 Total Protein 7.1 gm/dL (6.0-8.3) 01/30/18 13:20 Albumin 4.0 gm/dL (4.2-5.5) L 01/30/18 13:20 Globulin 3.1 gm/dL 01/30/18 13:20 Albumin/Globulin Ratio 1.3 (1.0-1.8) 01/30/18 13:20 Urine Source CLEAN C 01/30/18 18:45 Urine Color YELLOW 01/30/18 18:45 Urine Clarity CLEAR (CLEAR) 01/30/18 18:45 Urine pH 5.5 (4.6 - 8.0) 01/30/18 18:45 Ur Specific [place] 1.025 (1.005-1.030) 01/30/18 18:45 Urine Protein NEGATIVE mg/dL (NEGATIVE) 01/30/18 18:45 Urine Glucose (UA) NEGATIVE mg/dL (NEGATIVE) 01/30/18 18:45 Urine Ketones NEGATIVE mg/dL (NEGATIVE) 01/30/18 18:45 Urine Blood NEGATIVE (NEGATIVE) 01/30/18 18:45 Urine Nitrate NEGATIVE (NEGATIVE) 01/30/18 18:45 Urine Bilirubin NEGATIVE (NEGATIVE) 01/30/18 18:45 Urine Urobilinogen 0.2 E.U./dL (0.2 - 1.0) 01/30/18 18:45 Ur Leukocyte Esterase NEGATIVE (NEGATIVE) 01/30/18 18:45 Urine RBC 0-2 /hpf (0-5) H 01/30/18 18:45 Urine WBC 0-2 /hpf (0-5) 01/30/18 18:45 Ur Epithelial Cells OCCASIONAL /lpf (FEW) 01/30/18 18:45 Urine Bacteria OCCASIONAL /hpf (NONE SEEN) 01/30/18 18:45 - Physical Exam Vitals and I&O: Vital Signs Temp 98.5 F 02/02/18 11:39 Pulse 77 02/02/18 12:33 Resp 18 02/02/18 12:33 BP 119/68 02/02/18 11:39 Pulse Ox 88 02/02/18 12:33 Intake & Output 02/01/18 02/02/18 02/02/18 18:59 06:59 18:59 Intake Total 1999 Balance 2000 Weight (lbs) 112.491 kg 117.344 kg Intake: Oral 1999 Other: # Voids 3 1 # Bowel Movements 0 0 Weight Source Bedscale Bedscale Active Medications: Current Medications Acetaminophen/Hydrocodone Bitart ([place] 5mg/325mg) 1 tab PO BID [facility] Stop: 04/01/18 08:59 Last Admin: 02/02/18 11:28 Dose: Not Given Alendronate Sodium (Fosamax) 70 mg PO Th@0730 [facility]IRE Stop: 04/03/18 07:29 Last Admin: 02/02/18 11:46 Dose: 70 mg Allopurinol (Zyloprim) 300 mg PO DAILY [facility] Stop: 04/01/18 08:59 Last Admin: 02/02/18 08:13 Dose: Not Given Aripiprazole (Abilify) 5 mg PO DAILY [facility]; Protocol Stop: 04/01/18 08:59 Last Admin: 02/02/18 08:13 Dose: Not Given Atorvastatin Calcium (Lipitor) 20 mg PO HS [facility] Stop: 03/31/18 20:59 Last Admin: 02/01/18 20:47 Dose: 20 mg Baclofen (Lioresal) 10 mg PO QPM [facility] Stop: 04/01/18 16:59 Last Admin: 02/01/18 17:15 Dose: 10 mg Baclofen (Lioresal) 20 mg PO DAILY [facility] Stop: 04/01/18 08:59 Last Admin: 02/02/18 08:14 Dose: Not Given Cholecalciferol (Vitamin D3) 5,000 iu PO DAILY [facility] Stop: 04/01/18 08:59 Last Admin: 02/02/18 08:14 Dose: Not Given Docusate Sodium (Colace) 250 mg PO BID [facility] Stop: 04/01/18 08:59 Last Admin: 02/02/18 08:14 Dose: Not Given Fenofibrate (Tricor) 134 mg PO DAILY [facility] Stop: 04/01/18 08:59 Last Admin: 02/02/18 08:14 Dose: Not Given Furosemide (Lasix) 20 mg PO DAILY [facility] Stop: 04/01/18 08:59 Last Admin: 02/02/18 08:14 Dose: Not Given Gabapentin (Neurontin) 300 mg PO BID [facility] Stop: 04/01/18 08:59 Last Admin: 02/02/18 08:14 Dose: Not Given Insulin Aspart (Novolog Insulin Sliding Scale) 0 units SUBQ [facility]; Protocol Stop: 03/31/18 20:59 Last Admin: 02/02/18 11:29 Dose: Not Given Lamotrigine (Lamictal) 75 mg PO BID [facility] Stop: 04/01/18 08:59 Last Admin: 02/02/18 11:28 Dose: Not Given Metformin HCl (Glucophage) 500 mg PO BIDWM [facility] Stop: 04/01/18 07:59 Last Admin: 02/02/18 08:13 Dose: Not Given Morphine Sulfate (Morphine) 1 mg IVP Q3H PRN PRN Reason: Pain (Moderate) Stop: 03/31/18 20:01 Last Admin: 01/30/18 20:57 Dose: 1 mg Morphine Sulfate (Morphine) 2 mg IVP Q3H PRN PRN Reason: Pain (Severe) Stop: 03/31/18 20:02 Mupirocin (Bactroban Oint) 1 appl NS BID [facility] Stop: 02/06/18 16:59 Last Admin: 02/02/18 11:45 Dose: Not Given Tamsulosin HCl (Flomax) 0.4 mg PO DAILY [facility] Stop: 04/01/18 08:59 Last Admin: 02/02/18 08:15 Dose: Not Given General: No acute distress HEENT: Atraumatic Neck: Supple Cardiovascular: Regular rate Lungs: Normal air movement Abdomen: Bowel sounds Skin: Other (lower back ulcer , right heel ulcer) Assessment/Plan - Assessment Assessment: Bilateral low back ulcer. Right heel ulcer. Diabetes mellitus type 2. Hypertension. Obesity. Sleep apnea. Left lower extremity swelling. Lymphedema. Rule out DVT. - Plan Plan: monitor vitals cpm Nutritional Asmnt/Malnutr-PDOC - Dietary Evaluation Malnutrition Findings (Please click <Entered> for more info): Nutritional Asmnt/Malnutrition Start: 01/31/18 16: 06 Text: Status: Complete Freq: Protocol: Document 01/31/18 16:06 THO (Rec: 01/31/18 16:23 THO [email or web address]) Nutritional Asmnt/Malnutrition Patient General Information Nutritional Screening High Risk Diagnosis general weak, multiple decubitus, obesity, sleep apne Pertinent Medical Hx/Surgical Hx HTn, Dm, hyperlipidemia, gout Subjective Information Pt seen lying in bed at time of visit, not willing to talk. Pt indicated appetite fair. Pt consumed about 50% of lunch tray. Current Diet Order/ Nutrition Support low sodium, ADA Pertinent Medications vit D3, colace, lasix, novolog , glucophage Pertinent Labs 6/5 Cr 0.5, glucose 187, 184- 260 6/4 POC 150, A1c 9.2 Nutritional Hx/Data Height 1.85 m Height (Calculated Centimeters) 185.4 Current Weight (lbs) 112.491 kg Weight (Calculated Kilograms) 112.5 Weight (Calculated Grams) 019343.9 [place] Body Weight 186 Body Mass Index (BMI) 32.7 Weight Status Obese GI Symptoms GI Symptoms None Last BM not indicated Difficult in: None Skin Integrity/Comment: ulcer to right foot and sacrum Current %PO Poor (25-49%) Estimated Nutritional Goals BEE in Kcals: Adj wt of IBW Calories/Kcals/Kg 23-27 Kcals Calculated Protein: Adj wt of IBW Protein g/k Protein Calculated 91 Fluid: ml 2092-2456ml (1ml/kcal) Nutritional Problem 1. Problem Problem altered nutrition related labs Etiology hx of DM Signs/Symptoms: glucose 187, POC 184-260, A1c 9.2 Malnutrition Alert Is there a minimum of two criteria No selected? Query Text:Check all the applicable criteria. A minimum of two criteria are recommended for diagnosis of either severe or non-severe malnutrition. Malnutrition Related to Morbid Obesity Malnutrition related to morbid obesity No Intervention/Recommendation Comments 1. Continue with low sodium, ADA diet as ordered. Provide nutrition education when appropriate. 2. Recommend adding Arginaid BID for wound healing. 3. Monitor PO intake, wt, labs and skin integrity 4. F/U as high risk in 2-3 days, 02/02-02/03 Expected Outcomes/Goals Expected Outcomes/Goals 1. PO intake to meet at least 75% of nutritional needs. 2. Wt stability, skin to remain intact, labs to approach WNL.
[2018-02-02] MEDS: Atorvastatin Calcium 10 MG TAB PO SCH (21:24)
--- NOTE | 2018-02-03 01:17 | Infectious Disease Prog Note ---
Infectious Disease Subjective - Review of Systems Service Date: 02/02/18 Subjective: There is no new change, Infectious Disease Objective - Results Result Diagrams: 02/02/18 05:56 02/02/18 05:56 Recent Labs: Laboratory Last Values WBC 7.3 Th/cmm (4.8-10.8) 02/02/18 05:56 RBC 4.69 Mil/cmm (3.80-5.80) 02/02/18 05:56 Hgb 12.2 gm/dL (12-16) 02/02/18 05:56 Hct 37.4 % (41.0-60) L 02/02/18 05:56 MCV 79.8 fl (80-99) L 02/02/18 05:56 MCH 26.0 pg (27.0-31.0) L 02/02/18 05:56 MCHC Differential 32.7 pg (28.0-36.0) 02/02/18 05:56 RDW 14.9 % (11.5-20.0) 02/02/18 05:56 Plt Count 294 Th/cmm (150-400) 02/02/18 05:56 MPV 6.6 fl 02/02/18 05:56 Neutrophils % 64.9 % (40.0-80.0) 02/02/18 05:56 Lymphocytes % 25.1 % (20.0-50.0) 02/02/18 05:56 Monocytes % 8.0 % (2.0-10.0) 02/02/18 05:56 Eosinophils % 1.3 % (0.0-5.0) 02/02/18 05:56 Basophils % 0.7 % (0.0-2.0) 02/02/18 05:56 PT 10.8 SECONDS (9.5-11.5) 02/02/18 05:56 INR 1.04 (0.5-1.4) 02/02/18 05:56 Sodium 136 mEq/L (136-145) 02/02/18 05:56 Potassium 3.7 mEq/L (3.5-5.1) 02/02/18 05:56 Chloride 101 mEq/L (98-107) 02/02/18 05:56 Carbon Dioxide 27.2 mEq/L (21.0-31.0) 02/02/18 05:56 Anion Gap 11.5 (7.0-16.0) 02/02/18 05:56 BUN 12 mg/dL (7-25) 02/02/18 05:56 Creatinine 0.5 mg/dL (0.7-1.3) L 02/02/18 05:56 Est GFR ( Amer) TNP 02/02/18 05:56 Est GFR (Non-Af Amer) TNP 02/02/18 05:56 BUN/Creatinine Ratio 24.0 02/02/18 05:56 Glucose 168 mg/dL (70-105) H 02/02/18 05:56 POC Glucose 156 MG/DL (70 - 105) H 02/02/18 21:19 Hemoglobin A1c % 9.2 % (4.0-6.0) H 01/30/18 13:50 Calcium 9.3 mg/dL (8.6-10.3) 02/02/18 05:56 Total Bilirubin 0.5 mg/dL (0.3-1.0) 01/30/18 13:20 AST 16 U/L (13-39) 01/30/18 13:20 ALT 20 U/L (7-52) 01/30/18 13:20 Alkaline Phosphatase 107 U/L (34-104) H 01/30/18 13:20 Ammonia 29 umol/L (16-53) 01/30/18 13:50 Total Protein 7.1 gm/dL (6.0-8.3) 01/30/18 13:20 Albumin 4.0 gm/dL (4.2-5.5) L 01/30/18 13:20 Globulin 3.1 gm/dL 01/30/18 13:20 Albumin/Globulin Ratio 1.3 (1.0-1.8) 01/30/18 13:20 Urine Source CLEAN C 01/30/18 18:45 Urine Color YELLOW 01/30/18 18:45 Urine Clarity CLEAR (CLEAR) 01/30/18 18:45 Urine pH 5.5 (4.6 - 8.0) 01/30/18 18:45 Ur Specific [place] 1.025 (1.005-1.030) 01/30/18 18:45 Urine Protein NEGATIVE mg/dL (NEGATIVE) 01/30/18 18:45 Urine Glucose (UA) NEGATIVE mg/dL (NEGATIVE) 01/30/18 18:45 Urine Ketones NEGATIVE mg/dL (NEGATIVE) 01/30/18 18:45 Urine Blood NEGATIVE (NEGATIVE) 01/30/18 18:45 Urine Nitrate NEGATIVE (NEGATIVE) 01/30/18 18:45 Urine Bilirubin NEGATIVE (NEGATIVE) 01/30/18 18:45 Urine Urobilinogen 0.2 E.U./dL (0.2 - 1.0) 01/30/18 18:45 Ur Leukocyte Esterase NEGATIVE (NEGATIVE) 01/30/18 18:45 Urine RBC 0-2 /hpf (0-5) H 01/30/18 18:45 Urine WBC 0-2 /hpf (0-5) 01/30/18 18:45 Ur Epithelial Cells OCCASIONAL /lpf (FEW) 01/30/18 18:45 Urine Bacteria OCCASIONAL /hpf (NONE SEEN) 01/30/18 18:45 - Physical Exam Vitals and I&O: Vital Signs Temp 96.3 F 02/03/18 00:00 Pulse 80 02/03/18 00:00 Resp 18 02/03/18 00:00 BP 122/72 02/03/18 00:00 Pulse Ox 100 02/03/18 00:00 Intake & Output 02/02/18 02/02/18 02/03/18 06:59 18:59 06:59 Intake Total 650 Balance 650 Weight (lbs) 117.344 kg 117.027 kg Intake: Oral 650 Other: # Voids 1 3 # Bowel Movements 0 1 Weight Source Bedscale Bedscale Active Medications: Current Medications Acetaminophen/Hydrocodone Bitart ([place] 5mg/325mg) 1 tab PO BID [facility] Stop: 04/01/18 08:59 Last Admin: 02/02/18 16:41 Dose: 1 tab Alendronate Sodium (Fosamax) 70 mg PO Th@0730 [facility] Stop: 04/03/18 07:29 Last Admin: 02/02/18 11:46 Dose: 70 mg Allopurinol (Zyloprim) 300 mg PO DAILY [facility] Stop: 04/01/18 08:59 Last Admin: 02/02/18 08:13 Dose: Not Given Aripiprazole (Abilify) 5 mg PO DAILY [facility]; Protocol Stop: 04/01/18 08:59 Last Admin: 02/02/18 08:13 Dose: Not Given Atorvastatin Calcium (Lipitor) 20 mg PO HS [facility] Stop: 03/31/18 20:59 Last Admin: 02/02/18 21:24 Dose: 20 mg Baclofen (Lioresal) 10 mg PO QPM [facility] Stop: 04/01/18 16:59 Last Admin: 02/02/18 16:41 Dose: 10 mg Baclofen (Lioresal) 20 mg PO DAILY [facility] Stop: 04/01/18 08:59 Last Admin: 02/02/18 08:14 Dose: Not Given Cholecalciferol (Vitamin D3) 5,000 iu PO DAILY [facility] Stop: 04/01/18 08:59 Last Admin: 02/02/18 08:14 Dose: Not Given Docusate Sodium (Colace) 250 mg PO BID [facility] Stop: 04/01/18 08:59 Last Admin: 02/02/18 16:41 Dose: 250 mg Fenofibrate (Tricor) 134 mg PO DAILY [facility] Stop: 04/01/18 08:59 Last Admin: 02/02/18 08:14 Dose: Not Given Furosemide (Lasix) 20 mg PO DAILY [facility] Stop: 04/01/18 08:59 Last Admin: 02/02/18 08:14 Dose: Not Given Gabapentin (Neurontin) 300 mg PO BID [facility] Stop: 04/01/18 08:59 Last Admin: 02/02/18 16:41 Dose: 300 mg Insulin Aspart (Novolog Insulin Sliding Scale) 0 units SUBQ ACHS [facility]; Protocol Stop: 03/31/18 20:59 Last Admin: 02/02/18 21:22 Dose: Not Given Lamotrigine (Lamictal) 75 mg PO BID [facility] Stop: 04/01/18 08:59 Last Admin: 02/02/18 16:41 Dose: 75 mg Metformin HCl (Glucophage) 500 mg PO BIDWM [facility] Stop: 04/01/18 07:59 Last Admin: 02/02/18 17:16 Dose: 500 mg Morphine Sulfate (Morphine) 1 mg IVP Q3H PRN PRN Reason: Pain (Moderate) Stop: 03/31/18 20:01 Last Admin: 01/30/18 20:57 Dose: 1 mg Morphine Sulfate (Morphine) 2 mg IVP Q3H PRN PRN Reason: Pain (Severe) Stop: 03/31/18 20:02 Mupirocin (Bactroban Oint) 1 appl NS BID [facility] Stop: 02/06/18 16:59 Last Admin: 02/02/18 16:43 Dose: 1 appl Tamsulosin HCl (Flomax) 0.4 mg PO DAILY [facility] Stop: 04/01/18 08:59 Last Admin: 02/02/18 08:15 Dose: Not Given General: no acute distress, well developed, well nourished HEENT: atraumatic, normocephalic, PERRLA Neck: supple, no thyromegaly, no lymphadenopathy Cardiovascular: S1S2, regular Lungs: clear to auscultation bilaterally, clear to percussion Abdomen: soft, no tender, no distended, no mass Extremities: no cyanosis, no clubbing, no edema Neurological: awake, alert Skin: other (Bilateral low back ulcers stage II no erythema no discharge.) Infectious Disease Assmt/Plan - Assessment Assessment: 1. Bilateral low back ulcer. 2. Right heel ulcer. 3. Diabetes mellitus type 2. 4. Hypertension. 5. Obesity. 6. Sleep apnea. 7. Left lower extremity swelling. Lymphedema. Rule out DVT. - Plan Plan: cpm. Nutritional Asmnt/Malnutr-PDOC - Dietary Evaluation Malnutrition Findings (Please click <Entered> for more info): Nutritional Asmnt/Malnutrition Start: 01/31/18 16: 06 Text: Status: Complete Freq: Protocol: Document 01/31/18 16:06 LCHENG (Rec: 01/31/18 16:23 [email or web address] [email or web address]) Nutritional Asmnt/Malnutrition Patient General Information Nutritional Screening High Risk Diagnosis general weak, multiple decubitus, obesity, sleep apne Pertinent Medical Hx/Surgical Hx HTn, Dm, hyperlipidemia, gout Subjective Information Pt seen lying in bed at time of visit, not willing to talk. Pt indicated appetite fair. Pt consumed about 50% of lunch tray. Current Diet Order/ Nutrition Support low sodium, ADA Pertinent Medications vit D3, colace, lasix, novolog , glucophage Pertinent Labs 01/31 Cr 0.5, glucose 187, 184- 260 6/ POC 150, A1c 9.2 Nutritional Hx/Data Height 1.85 m Height (Calculated Centimeters) 185.4 Current Weight (lbs) 112.491 kg Weight (Calculated Kilograms) 112.5 Weight (Calculated Grams) 686306.9 [place] Body Weight 186 Body Mass Index (BMI) 32.7 Weight Status Obese GI Symptoms GI Symptoms None Last BM not indicated Difficult in: None Skin Integrity/Comment: ulcer to right foot and sacrum Current %PO Poor (25-49%) Estimated Nutritional Goals BEE in Kcals: Adj wt of IBW Calories/Kcals/Kg 23-27 Kcals Calculated 4411-2427 Protein: Adj wt of IBW Protein g/k Protein Calculated 91 Fluid: ml 2093-2457ml (1ml/kcal) Nutritional Problem 1. Problem Problem altered nutrition related labs Etiology hx of DM Signs/Symptoms: glucose 187, POC 184-260, A1c 9.2 Malnutrition Alert Is there a minimum of two criteria No selected? Query Text:Check all the applicable criteria. A minimum of two criteria are recommended for diagnosis of either severe or non-severe malnutrition. Malnutrition Related to Morbid Obesity Malnutrition related to morbid obesity No Intervention/Recommendation Comments 1. Continue with low sodium, ADA diet as ordered. Provide nutrition education when appropriate. 2. Recommend adding Arginaid BID for wound healing. 3. Monitor PO intake, wt, labs and skin integrity 4. F/U as high risk in 2-3 days, 02/02-02/03 Expected Outcomes/Goals Expected Outcomes/Goals 1. PO intake to meet at least 75% of nutritional needs. 2. Wt stability, skin to remain intact, labs to approach WNL.
[2018-02-03 06:38] LABS: ALB/GLOB RATIO 1.1 (1.0-1.8); ALBUMIN 3.6 gm/dL (4.2-5.5); ALKALINE PHOSPHATASE 97 U/L (34-104); ANION GAP 12.1 (7.0-16.0); BILIRUBIN,TOTAL 0.6 mg/dL (0.3-1.0); BUN - UREA NITROGEN 8 mg/dL (7-25); CALCIUM SERUM 9.1 mg/dL (8.6-10.3); CARBON DIOXIDE 25.7 mEq/L (21.0-31.0); CHLORIDE 101 mEq/L (98-107); CREATININE - SERUM 0.5 mg/dL (0.7-1.3); GLUCOSE 184 mg/dL (70-105); POTASSIUM SERUM 3.8 mEq/L (3.5-5.1); SGOT 28 U/L (13-39); SGPT/ALT 33 U/L (7-52); SODIUM SERUM 135 mEq/L (136-145); TOTAL PROTEIN,SERUM 6.9 gm/dL (6.0-8.3)
[2018-02-03 06:40] LABS: % BASOPHILS 0.6 % (0.0-2.0); % EOSINOPHILS 1.8 % (0.0-5.0); % LYMPHOCYTES 23.3 % (20.0-50.0); % MONOCYTES 7.9 % (2.0-10.0); % NEUTROPHILS 66.4 % (40.0-80.0); EOSINOPHILE ABSOLUTE 0.1 Th/cmm (0.1-0.4); HEMATOCRIT 36.4 % (41.0-60); LYMPHOCYTE ABSOLUTE 1.6 Th/cmm (1.5-3.0); MEAN CELL VOLUME 80.3 fl (80-99); MEAN CORPUSCULAR HEMOGLOBIN 26.4 pg (27.0-31.0); MEAN CORPUSCULAR HGB CONC 32.9 pg (28.0-36.0); MEAN PLATELET VOLUME 6.2 fl; MONOCYTE ABSOLUTE 0.6 Th/cmm (0.3-1.0); NEUTROPHILE ABSOLUTE 4.7 Th/cmm (1.8-8.0); PLATELET COUNT 300 Th/cmm (150-400); RED BLOOD COUNT 4.54 Mil/cmm (3.80-5.80); RED CELL DISTRIBUTION WIDTH 15.3 % (11.5-20.0)
[2018-02-03] MEDS: INSULIN ASPART SLIDING SCALE 100 UNITS/ML UNIT SUBQ SCH ×2 (08:20→11:57)
[2018-02-03] MEDS: Hydrocodone/APAP 5mg/325mg Tab PO SCH (08:24)
[2018-02-03] MEDS: Fenofibrate, Micronized 134 mg Cap PO SCH (08:30)
[2018-02-03] MEDS: Multivitamin w/ Minerals Tab PO SCH (08:30)
--- NOTE | 2018-02-03 15:38 | General Progress Note ---
Subjective - Review of Systems Service Date: 02/03/18 Events since last encounter: local wound care ordered Objective - Results Result Diagrams: 02/03/18 06:00 02/03/18 06:00 Recent Labs: Laboratory Last Values WBC 7.0 Th/cmm (4.8-10.8) 02/03/18 06:00 RBC 4.54 Mil/cmm (3.80-5.80) 02/03/18 06:00 Hgb 12.0 gm/dL (12-16) 02/03/18 06:00 Hct 36.4 % (41.0-60) L 02/03/18 06:00 MCV 80.3 fl (80-99) 02/03/18 06:00 MCH 26.4 pg (27.0-31.0) L 02/03/18 06:00 MCHC Differential 32.9 pg (28.0-36.0) 02/03/18 06:00 RDW 15.3 % (11.5-20.0) 02/03/18 06:00 Plt Count 300 Th/cmm (150-400) 02/03/18 06:00 MPV 6.2 fl 02/03/18 06:00 Neutrophils % 66.4 % (40.0-80.0) 02/03/18 06:00 Lymphocytes % 23.3 % (20.0-50.0) 02/03/18 06:00 Monocytes % 7.9 % (2.0-10.0) 02/03/18 06:00 Eosinophils % 1.8 % (0.0-5.0) 02/03/18 06:00 Basophils % 0.6 % (0.0-2.0) 02/03/18 06:00 PT 10.8 SECONDS (9.5-11.5) 02/02/18 05:56 INR 1.04 (0.5-1.4) 02/02/18 05:56 Sodium 135 mEq/L (136-145) L 02/03/18 06:00 Potassium 3.8 mEq/L (3.5-5.1) 02/03/18 06:00 Chloride 101 mEq/L (98-107) 02/03/18 06:00 Carbon Dioxide 25.7 mEq/L (21.0-31.0) 02/03/18 06:00 Anion Gap 12.1 (7.0-16.0) 02/03/18 06:00 BUN 8 mg/dL (7-25) 02/03/18 06:00 Creatinine 0.5 mg/dL (0.7-1.3) L 02/03/18 06:00 Est GFR ( Amer) TNP 02/03/18 06:00 Est GFR (Non-Af Amer) TNP 02/03/18 06:00 BUN/Creatinine Ratio 16.0 02/03/18 06:00 Glucose 184 mg/dL (70-105) H 02/03/18 06:00 POC Glucose 197 MG/DL (70 - 105) H 02/03/18 11:21 Hemoglobin A1c % 9.2 % (4.0-6.0) H 01/30/18 13:50 Calcium 9.1 mg/dL (8.6-10.3) 02/03/18 06:00 Total Bilirubin 0.6 mg/dL (0.3-1.0) 02/03/18 06:00 AST 28 U/L (13-39) 02/03/18 06:00 ALT 33 U/L (7-52) 02/03/18 06:00 Alkaline Phosphatase 97 U/L (34-104) 02/03/18 06:00 Ammonia 29 umol/L (16-53) 01/30/18 13:50 Total Protein 6.9 gm/dL (6.0-8.3) 02/03/18 06:00 Albumin 3.6 gm/dL (4.2-5.5) L 02/03/18 06:00 Globulin 3.3 gm/dL 02/03/18 06:00 Albumin/Globulin Ratio 1.1 (1.0-1.8) 02/03/18 06:00 Urine Source CLEAN C 01/30/18 18:45 Urine Color YELLOW 01/30/18 18:45 Urine Clarity CLEAR (CLEAR) 01/30/18 18:45 Urine pH 5.5 (4.6 - 8.0) 01/30/18 18:45 Ur Specific [place] 1.025 (1.005-1.030) 01/30/18 18:45 Urine Protein NEGATIVE mg/dL (NEGATIVE) 01/30/18 18:45 Urine Glucose (UA) NEGATIVE mg/dL (NEGATIVE) 01/30/18 18:45 Urine Ketones NEGATIVE mg/dL (NEGATIVE) 01/30/18 18:45 Urine Blood NEGATIVE (NEGATIVE) 01/30/18 18:45 Urine Nitrate NEGATIVE (NEGATIVE) 01/30/18 18:45 Urine Bilirubin NEGATIVE (NEGATIVE) 01/30/18 18:45 Urine Urobilinogen 0.2 E.U./dL (0.2 - 1.0) 01/30/18 18:45 Ur Leukocyte Esterase NEGATIVE (NEGATIVE) 01/30/18 18:45 Urine RBC 0-2 /hpf (0-5) H 01/30/18 18:45 Urine WBC 0-2 /hpf (0-5) 01/30/18 18:45 Ur Epithelial Cells OCCASIONAL /lpf (FEW) 01/30/18 18:45 Urine Bacteria OCCASIONAL /hpf (NONE SEEN) 01/30/18 18:45 - Physical Exam Vitals and I&O: Vital Signs Temp 98.0 F 02/03/18 14:38 Pulse 71 02/03/18 14:38 Resp 17 02/03/18 14:38 BP 95/55 02/03/18 14:38 Pulse Ox 97 02/03/18 14:38 Intake & Output 02/02/18 02/03/18 02/03/18 18:59 06:59 18:59 Intake Total 650 1500 Output Total 1201 Balance 650 299 Weight (lbs) 117.027 kg 117.027 kg Intake: Oral 650 1500 Output: Urine 1200 Stool 1 Other: # Voids 3 3 # Bowel Movements 1 1 Stool Characteristics Soft Weight Source Bedscale Bedscale Active Medications: Current Medications Acetaminophen/Hydrocodone Bitart ([place] 5mg/325mg) 1 tab PO BID [facility] Stop: 04/01/18 08:59 Last Admin: 02/03/18 08:24 Dose: 1 tab Alendronate Sodium (Fosamax) 70 mg PO Th@0730 [facility] Stop: 04/03/18 07:29 Last Admin: 02/02/18 11:46 Dose: 70 mg Allopurinol (Zyloprim) 300 mg PO DAILY [facility] Stop: 04/01/18 08:59 Last Admin: 02/03/18 08:24 Dose: 300 mg Aripiprazole (Abilify) 5 mg PO DAILY [facility]; Protocol Stop: 04/01/18 08:59 Last Admin: 02/03/18 08:24 Dose: 5 mg Atorvastatin Calcium (Lipitor) 20 mg PO HS [facility] Stop: 03/31/18 20:59 Last Admin: 02/02/18 21:24 Dose: 20 mg Baclofen (Lioresal) 10 mg PO QPM [facility] Stop: 04/01/18 16:59 Last Admin: 02/02/18 16:41 Dose: 10 mg Baclofen (Lioresal) 20 mg PO DAILY [facility] Stop: 04/01/18 08:59 Last Admin: 02/03/18 08:24 Dose: 20 mg Cholecalciferol (Vitamin D3) 5,000 iu PO DAILY [facility] Stop: 04/01/18 08:59 Last Admin: 02/03/18 08:24 Dose: 5,000 iu Docusate Sodium (Colace) 250 mg PO BID [facility] Stop: 04/01/18 08:59 Last Admin: 02/03/18 08:24 Dose: 250 mg Fenofibrate (Tricor) 134 mg PO DAILY [facility] Stop: 04/01/18 08:59 Last Admin: 02/03/18 08:30 Dose: 134 mg Furosemide (Lasix) 20 mg PO DAILY [facility] Stop: 04/01/18 08:59 Last Admin: 02/03/18 08:24 Dose: 20 mg Gabapentin (Neurontin) 300 mg PO BID [facility] Stop: 04/01/18 08:59 Last Admin: 02/03/18 08:30 Dose: 300 mg Insulin Aspart (Novolog Insulin Sliding Scale) 0 units SUBQ ACHS [facility]; Protocol Stop: 03/31/18 20:59 Last Admin: 02/03/18 11:57 Dose: 2 units Lamotrigine (Lamictal) 75 mg PO BID [facility] Stop: 04/01/18 08:59 Last Admin: 02/03/18 08:23 Dose: 75 mg Metformin HCl (Glucophage) 500 mg PO BIDWM [facility] Stop: 04/01/18 07:59 Last Admin: 02/03/18 08:23 Dose: 500 mg Morphine Sulfate (Morphine) 1 mg IVP Q3H PRN PRN Reason: Pain (Moderate) Stop: 03/31/18 20:01 Last Admin: 01/30/18 20:57 Dose: 1 mg Morphine Sulfate (Morphine) 2 mg IVP Q3H PRN PRN Reason: Pain (Severe) Stop: 03/31/18 20:02 Last Admin: 02/03/18 04:47 Dose: 2 mg Mupirocin (Bactroban Oint) 1 appl NS BID [facility] Stop: 02/06/18 16:59 Last Admin: 02/03/18 08:30 Dose: 1 appl Tamsulosin HCl (Flomax) 0.4 mg PO DAILY [facility] Stop: 04/01/18 08:59 Last Admin: 02/03/18 08:24 Dose: 0.4 mg General: No acute distress HEENT: Atraumatic Neck: Supple Cardiovascular: Regular rate Lungs: Normal air movement Abdomen: Bowel sounds Skin: Other (lower back ulcer , right heel ulcer) Nutritional Asmnt/Malnutr-PDOC - Dietary Evaluation Malnutrition Findings (Please click <Entered> for more info): Nutritional Asmnt/Malnutrition Start: 01/31/18 16: 06 Text: Status: Complete Freq: Protocol: Document 01/31/18 16:06 FADY (Rec: 01/31/18 16:23 THO [email or web address]) Nutritional Asmnt/Malnutrition Patient General Information Nutritional Screening High Risk Diagnosis general weak, multiple decubitus, obesity, sleep apne Pertinent Medical Hx/Surgical Hx HTn, Dm, hyperlipidemia, gout Subjective Information Pt seen lying in bed at time of visit, not willing to talk. Pt indicated appetite fair. Pt consumed about 50% of lunch tray. Current Diet Order/ Nutrition Support low sodium, ADA Pertinent Medications vit D3, colace, lasix, novolog , glucophage Pertinent Labs 6/5 Cr 0.5, glucose 187, 184- 260 6/4 POC 150, A1c 9.2 Nutritional Hx/Data Height 1.85 m Height (Calculated Centimeters) 185.4 Current Weight (lbs) 112.491 kg Weight (Calculated Kilograms) 112.5 Weight (Calculated Grams) 912690.9 [place] Body Weight 186 Body Mass Index (BMI) 32.7 Weight Status Obese GI Symptoms GI Symptoms None Last BM not indicated Difficult in: None Skin Integrity/Comment: ulcer to right foot and sacrum Current %PO Poor (25-49%) Estimated Nutritional Goals BEE in Kcals: Adj wt of IBW Calories/Kcals/Kg 23-27 Kcals Calculated 0023-2375 Protein: Adj wt of IBW Protein g/k Protein Calculated 91 Fluid: ml 2093-2457ml (1ml/kcal) Nutritional Problem 1. Problem Problem altered nutrition related labs Etiology hx of DM Signs/Symptoms: glucose 187, POC 184-260, A1c 9.2 Malnutrition Alert Is there a minimum of two criteria No selected? Query Text:Check all the applicable criteria. A minimum of two criteria are recommended for diagnosis of either severe or non-severe malnutrition. Malnutrition Related to Morbid Obesity Malnutrition related to morbid obesity No Intervention/Recommendation Comments 1. Continue with low sodium, ADA diet as ordered. Provide nutrition education when appropriate. 2. Recommend adding Arginaid BID for wound healing. 3. Monitor PO intake, wt, labs and skin integrity 4. F/U as high risk in 2-3 days, 02/02-02/03 Expected Outcomes/Goals Expected Outcomes/Goals 1. PO intake to meet at least 75% of nutritional needs. 2. Wt stability, skin to remain intact, labs to approach WNL.
--- NOTE | 2018-02-10 11:15 | Operative Report ---
DATE OF SURGERY: 02/02/2018 PREOPERATIVE DIAGNOSES: 1. Stage 2 decubitus ulcers at the back. 2. Stage 2 decubitus ulcer, right heel. 3. Obesity. 4. Hyperlipidemia. POSTOPERATIVE DIAGNOSES: 1. Stage 2 decubitus ulcers at the back. 2. Stage 2 decubitus ulcer, right heel. 3. Obesity. 4. Hyperlipidemia. OPERATION DONE: 1. Excisional debridement of back decubitus ulcers, stage 2 scattered over an area of 30 x 20 cm., depth to subcutaneous tissue 2. Stage 2 right heel decubitus ulcer, size 3 x 5 cm, depth to subcutaneous tissue Depth is to the subcutaneous tissue as well. SURGEON: Jim Cunningham MD ANESTHESIA: Sedation. ANESTHESIOLOGIST: Jozef. ESTIMATED BLOOD LOSS: None. DESCRIPTION OF PROCEDURE: The patient was given IV sedation. He was then turned on the left side. The back and the healed areas were prepped with Betadine and draped. Excision of necrotic tissue was done on all areas involved with minimal bleeding. This was done with scissors and knife. Following satisfactory hemostasis, antibiotic ointment was applied and dressings. Same thing was done on the right heel. The patient tolerated the procedure well. JOB# [id number] CECELIA
--- NOTE | 2018-02-27 19:37 | Discharge Summary ---
DATE OF DISCHARGE: 02/03/2018 HOSPITAL COURSE: The patient was admitted on 01/30/2018 with a history of increasing shortness of breath, increasing multiple decubiti, bedbound status, obesity, sleep apnea. The patient was reviewed and given breathing treatment, had a Pulmonary see the patient as well as Bret Carrington and the patient eventually the patient improved and the patient was in stable condition. On 01/31/2018 with a final diagnosis of severe obesity, sleep apnea, some decubiti, COPD exacerbation controlled, aspirate. The patient was sent back to [place] where I will be following the patient. CONDITION AT THE TIME OF DISCHARGE: Stable. JOB# [id number]
== END 2018-02-03 15:55 | DRG 854 ==
LOC: ER 12:02 → MSI 18:00
PROVIDERS: ADMIT Internal Medicine; ATTEND Internal Medicine
PROC: 0JBQ0ZZ Excision of Right Foot Subcutaneous Tissue and Fascia, Open Approach (ICD-10-PCS; principal; 2018-02-02)
PROC: 0JB70ZZ Excision of Back Subcutaneous Tissue and Fascia, Open Approach (ICD-10-PCS; 2018-02-02)
DX: A41.9 Sepsis, unspecified organism (principal); I82.402 Acute embolism and thrombosis of unspecified deep veins of left lower extremity; J44.1 Chronic obstructive pulmonary disease with (acute) exacerbation; L89.612 Pressure ulcer of right heel, stage 2; Z74.01 Bed confinement status; E66.01 Morbid (severe) obesity due to excess calories; E78.5 Hyperlipidemia, unspecified; K21.9 Gastro-esophageal reflux disease without esophagitis; N40.0 Benign prostatic hyperplasia without lower urinary tract symptoms; L89.142 Pressure ulcer of left lower back, stage 2; L89.132 Pressure ulcer of right lower back, stage 2; G47.33 Obstructive sleep apnea (adult) (pediatric); E11.51 Type 2 diabetes mellitus with diabetic peripheral angiopathy without gangrene; I10 Essential (primary) hypertension; M10.9 Gout, unspecified; F31.9 Bipolar disorder, unspecified; Z68.34 Body mass index [BMI] 34.0-34.9, adult; Z79.4 Long term (current) use of insulin; Z87.11 Personal history of peptic ulcer disease
CPT/HCPCS: 36415-UA; 71045-TC; 80048-TC; 80053-TC; 81001-TC; 82140-TC; 82948-90; 83036-90; 85025-TC; 85610-TC; 93005; 93925-TC; 93970-TC-50; 94760; J0690; J1815; J2250; V2790; Z7610